=== PATIENT | male | born 1960 | race Caucasian/White ===

== ENCOUNTER 2018-11-29 13:26 | Emergency (ER) | payer OTHER ==
--- OUTSIDE RECORDS SUMMARY | 2018-11-29 13:29 | XMS REPORT ---
:1960 [facility] Address [address] [place] [address] Dr. Umana [address] [place] [id number] Care Team Providers Name Role Phone Unavailable Unavailable Unavailable Problems This patient has no known problems. Allergies, Adverse Reactions, Alerts This patient has no known allergies or adverse reactions. Medications This patient has no known medications.
--- NOTE | 2018-11-29 15:31 | EDPHYS ---
Physician Documentation [facility] Name: Rd Rodriguez Age: 58 yrs Sex: Male : 1960 Arrival Date: 11/29/2018 Time: 13:32 Bed 11 Private MD: ED Physician Arie Willis HPI: 11/29 14:45 This 58 yrs old Male presents to ER via Ambulatory with complaints of Back cp Pain. 14:45 The patient presents with pain that is chronic, with no known mechanism of injury, and cp tenderness. The symptoms are located in the right sciatic area. Onset: The symptoms/episode began/occurred gradually. The pain radiates to the right leg. Associated signs and symptoms: Pertinent negatives: abdominal pain, constipation, fever, hematuria, incontinence, urinary retention, weakness, saddle anesthesia. 14:45 The problem was sustained from a chronic condition, the patient has known disc disease, cp with intermittent flare ups. Modifying factors: the patient symptoms are aggravated by movement, walking. Historical: - Allergies: 13:34 No Known Allergies; bp - Home Meds: 13:34 Metoprolol Tartrate Oral [Active]; Seroquel Oral [Active]; Zoloft Oral [Active]; bp Amitriptyline Oral [Active]; gabapentin oral oral [Active]; - PMHx: 13:34 Hypertension; bp - Immunization history:: Adult Immunizations unknown. - Social history:: Smoking status: Patient uses tobacco products, smokes one pack cigarettes per day. - Ebola Screening: : No symptoms or risks identified at this time. ROS: 14:50 Constitutional: Negative for body aches, chills, fever, poor PO intake. cp 14:50 Eyes: Negative for injury, pain, redness, and discharge. cp 14:50 ENT: Negative for drainage from ear(s), ear pain, sore throat, difficulty swallowing, difficulty handling secretions. 14:50 Cardiovascular: Negative for chest pain, palpitations. 14:50 Respiratory: Negative for cough, shortness of breath, wheezing. 14:50 Abdomen/GI: Negative for abdominal pain, nausea, vomiting, and diarrhea, anorexia, bowel incontinence. 14:50 Back: Positive for pain at rest, pain with movement, of the right sciatic area. 14:50 : Negative for urinary symptoms, flank pain, difficulty urinating, bladder incontinence, testicular pain 14:50 MS/extremity: Positive for pain, paresthesias, of the right leg, Negative for injury or acute deformity, decreased range of motion. 14:50 Skin: Negative for rash. 14:50 Neuro: Negative for altered mental status, headache, numbness, weakness. 14:50 All other systems are negative. Exam: 15:00 Constitutional: The patient appears in no acute distress, alert, awake, non-toxic, well cp developed, well nourished, uncomfortable. 15:00 Head/Face: Normocephalic, atraumatic. cp 15:00 Eyes: Periorbital structures: appear normal, Conjunctiva: normal, no exudate, no injection, Sclera: no appreciated abnormality, Lids and lashes: appear normal, bilaterally. 15:00 ENT: External ear(s): are unremarkable, Nose: is normal, Mouth: Lips: moist, Oral mucosa: pink and intact, moist, Posterior pharynx: is normal, airway is patent, no erythema, no exudate. 15:00 Neck: ROM/movement: is normal, is supple, without pain, no range of motions limitations, no nuchal rigidity. 15:00 Chest/axilla: Inspection: normal. 15:00 Cardiovascular: Rhythm: regular. 15:00 Respiratory: the patient does not display signs of respiratory distress, Respirations: normal. 15:00 Abdomen/GI: Inspection: abdomen appears normal. 15:00 Back: pain, that is moderate, of the right sciatic area, ROM is painful, with flexion, vertebral tenderness, is not appreciated, Straight leg raises: of both lower extremities does not illicit pain. 15:00 Neuro: Motor: moves all fours, strength is normal, Sensation: no obvious gross deficits, Gait: is steady, Deep tendon reflexes are 2+ (normal) in the right patellar, right Achilles, left patellar and left Achilles. Vital Signs: 13:34 BP 142 / 84; Pulse 77; Resp 16; Temp 98; Pulse Ox 98% ; Weight 78.02 kg; Height 5 ft. 9 bp in. (175.26 cm); 15:33 Pain 6/10; ss 13:34 Body Mass Index 25.40 (78.02 kg, 175.26 cm) bp MDM: 14:34 Patient medically screened. cp 15:30 Data reviewed: vital signs, nurses notes, and as a result, I will discharge patient. cp 15:30 Counseling: I had a detailed discussion with the patient and/or guardian regarding: the cp historical points, exam findings, and any diagnostic results supporting the discharge/admit diagnosis, the need for outpatient follow up, a family practitioner, to return to the emergency department if symptoms worsen or persist or if there are any questions or concerns that arise at home. Response to treatment: the patient's symptoms have markedly improved after treatment, and as a result, I will discharge patient. Administered Medications: 14:47 Drug: TORadol 60 mg Route: IM; Site: left gluteus; ss 15:33 Follow up: Response: No adverse reaction; Pain is decreased ss Disposition: 11/29/18 15:31 Discharged to Home. Impression: Sciatica, right side. - Condition is Stable. - Discharge Instructions: Sciatica, Back Exercises. - Prescriptions for Cyclobenzaprine 10 mg Oral Tablet - take 1 tablet by ORAL route every 8 hours As needed no driving while taking medication; 20 tablet. Tramadol 50 mg Oral Tablet - take 1 tablet by ORAL route every 8 hours as needed; 12 tablet. Medrol (Fadi) 4 mg Oral Tablets, Dose Pack - take 1 tablet by ORAL route as directed - follow package instructions; 1 packet. - Medication Reconciliation Form, Thank You Letter, Antibiotic Education, Prescription Opioid Use form. - Follow up: Private Physician; When: 2 - 3 days; Reason: Recheck today's complaints. - Problem is new. - Symptoms have improved. Signatures: Elsa Bojorquez RN RN ss Alejandro Reyna PA PA cp Slava Bell RN RN bp Corrections: (The following items were deleted from the chart) 16:11 15:31 11/29/2018 15:31 Discharged to Home. Impression: Sciatica, right side. Condition ss is Stable. Forms are Medication Reconciliation Form, Thank You Letter, Antibiotic Education, Prescription Opioid Use. Follow up: Private Physician; When: 2 - 3 days; Reason: Recheck today's complaints. Problem is new. Symptoms have improved. cp
--- NOTE | 2018-11-29 15:31 | ER ---
Nurse's Notes [facility] Name: Rd Rodriguez Age: 58 yrs Sex: Male : 1960 Arrival Date: 11/29/2018 Time: 13:32 Bed 11 Private MD: Diagnosis: Sciatica, right side Presentation: 11/29 13:32 Presenting complaint: Patient states: R HIP/BACK PAIN, SCIATICA PATTERN. Transition of bp care: patient was not received from another setting of care. Onset of symptoms is unknown. Risk Assessment: Do you want to hurt yourself or someone else? Patient reports no desire to harm self or others. Initial Sepsis Screen: Does the patient meet any 2 criteria? No. Patient's initial sepsis screen is negative. Does the patient have a suspected source of infection? No. Patient's initial sepsis screen is negative. Care prior to arrival: None. 13:32 Method Of Arrival: Ambulatory bp 13:32 Acuity: JERICA 5 bp Triage Assessment: 13:34 General: Appears in no apparent distress. uncomfortable, Behavior is calm, cooperative, bp appropriate for age. Pain: Complains of pain in right leg. EENT: No deficits noted. Neuro: Level of Consciousness is awake, alert, obeys commands, Oriented to person, place, time, situation, Appropriate for age. Cardiovascular: No deficits noted. Respiratory: Airway is patent Respiratory effort is even, unlabored, Respiratory pattern is regular, symmetrical. GI: No signs and/or symptoms were reported involving the gastrointestinal system. : No signs and/or symptoms were reported regarding the genitourinary system. Derm: No deficits noted. Musculoskeletal: Circulation, motion, and sensation intact. Historical: - Allergies: 13:34 No Known Allergies; bp - Home Meds: 13:34 Metoprolol Tartrate Oral [Active]; Seroquel Oral [Active]; Zoloft Oral [Active]; bp Amitriptyline Oral [Active]; gabapentin oral oral [Active]; - PMHx: 13:34 Hypertension; bp - Immunization history:: Adult Immunizations unknown. - Social history:: Smoking status: Patient uses tobacco products, smokes one pack cigarettes per day. - Ebola Screening: : No symptoms or risks identified at this time. Screenin:30 Abuse screen: Denies threats or abuse. Denies injuries from another. Nutritional ss screening: No deficits noted. Tuberculosis screening: Never had TB. Fall Risk None identified. Assessment: 14:30 General: Appears in no apparent distress. comfortable, Behavior is calm, cooperative, ss Denies fever, feeling ill, fatigue, chills. Pain: Complains of pain in right ankle Pain currently is 8 out of 10 on a pain scale. Quality of pain is described as aching, Pain began years ago. Pt reports he has occasional flares ups over the past few years about every 5-6 months. Is continuous, Aggravated by increased activity, repositioning, weight bearing. Neuro: Level of Consciousness is awake, alert, obeys commands, Oriented to person, place, time, situation. Cardiovascular: Pulses are palpable in right posterior tibial artery and left posterior tibial artery. Respiratory: Airway is patent Respiratory effort is even, unlabored, Respiratory pattern is regular, symmetrical. GI: No signs and/or symptoms were reported involving the gastrointestinal system. EENT: Nares are clear Oral mucosa is moist. Throat is clear. Derm: Skin is intact, is healthy with good turgor, Skin is dry, Skin is pink, warm \T\ dry. normal. Musculoskeletal: Circulation, motion, and sensation intact. Range of motion: intact in all extremities, Swelling absent. 15:30 Reassessment: Patient appears in no apparent distress at this time. Patient and/or ss family updated on plan of care and expected duration. Pain level reassessed. Patient is alert, oriented x 3, equal unlabored respirations, skin warm/dry/pink. Pt is anxious to go home Patient states feeling better. Patient states symptoms have improved. Vital Signs: 13:34 BP 142 / 84; Pulse 77; Resp 16; Temp 98; Pulse Ox 98% ; Weight 78.02 kg; Height 5 ft. 9 bp in. (175.26 cm); 15:33 Pain 6/10; ss 13:34 Body Mass Index 25.40 (78.02 kg, 175.26 cm) bp ED Course: 13:32 Patient arrived in ED. mr 13:33 Triage completed. bp 13:36 Arm band placed on. bp 14:30 Alejandro Reyna PA is PHCP. cp 14:30 Arie Willis MD is Attending Physician. cp 14:30 Patient has correct armband on for positive identification. Bed in low position. Call ss light in reach. 14:30 No provider procedures requiring assistance completed. Patient did not have IV access ss during this emergency room visit. 14:36 Elsa Bojorquez, RN is Primary Nurse. ss Administered Medications: 14:47 Drug: TORadol 60 mg Route: IM; Site: left gluteus; ss 15:33 Follow up: Response: No adverse reaction; Pain is decreased ss Outcome: 15:31 Discharge ordered by MD. cp 16:10 Discharged to home ambulatory, with friend. ss 16:10 Condition: good 16:10 Discharge instructions given to patient, family, Instructed on discharge instructions, follow up and referral plans. medication usage, Demonstrated understanding of instructions, follow-up care, medications, Prescriptions given X 3. 16:11 Patient left the ED. Signatures: Blu Clarita mr Elsa Bojorquez, RN RN Alejandro Reyna, Slava Sams cp, RN RN bp
[2018-11-29] MEDS ORDERED: CODEINE 30MG/APAP 300MG TAB ONE (15:53)
[2018-11-29] MEDS ORDERED: KETOROLAC 30 MG/ML INJ ONE (17:25)
== END 2018-11-29 16:11 | disposition home or self-care (01) ==
LOC: ER 13:26 → EDBD 13:26 → ER 16:11
DX: M54.31 Sciatica, right side (principal); I10 Essential (primary) hypertension; F17.210 Nicotine dependence, cigarettes, uncomplicated
CPT/HCPCS: 96372; 99283

== ENCOUNTER 2022-11-10 08:56 | Emergency (ER) | payer OTHER ==
--- OUTSIDE RECORDS SUMMARY | 2022-11-10 09:02 | XMS REPORT | Continuity of Care Document ---
:1960 Author Organization [facility] t Address [address] [place] [address] [place] [id number] Care Team Providers Name Role Phone Sumanth NELSON, [facility] Primary Care Physician Derek Romano PTA Attending Clinician Unavailable Wilian Barnett MD Attending Clinician WILIAN BARNETT Attending Clinician Unavailable KARYN RAE Attending Clinician Unavailable Karyn Rae MD Attending Clinician Doctor Unassigned, Lee Vining Attending Clinician Unavailable Zulma Kelly PT Attending Clinician Unavailable Unknown, Attending Attending Clinician Unavailable Colten Manning Attending Clinician UNKNOWN, ATTENDING Attending Clinician Unavailable COLTEN ALTMAN Attending Clinician Unavailable Anju Rodriguez Attending Clinician SINGH GARCIA Attending Clinician Unavailable MEME MONTES Attending Clinician Unavailable RONEY MARTINEZ Attending Clinician Unavailable VERNA WALLACE Attending Clinician Unavailable Rasta Martins DO Attending Clinician RASTA MARTINS Attending Clinician Unavailable RASTA MARTINS Attending Clinician Unavailable ANJU RASMUSSEN Attending Clinician Unavailable Gama Robert Attending Clinician Unavailable Singh Garcia MD Attending Clinician ANJU RASMUSSEN Admitting Clinician Unavailable Payers Payer Name Policy Type Policy Number Effective Date Expiration Date Charles dominguez [employer] [id number] 2018 00:00:00 [employer] [id number] 2018 CARE 00:00:00 Problems Condition Condition Condition Status Onset Resolution Last Treating Co mments Source Name Details Category Date Date Treatment Clinician Date Acute Acute Disease Active Univers bilateral bilateral 309 ity of low back low back 00:00: [place] pain with pain with 00 Medi isabel sciatica sciatica Branch Abnormal Abnormal Disease Active Unive rs gait gait 3 ity of 00:00: [facility] Essential Essential Disease Active 2017-06 Uni vers hypertensi hypertensi 1-15 it y of on on 00:00: [place] 00 Medical Branch 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 00:00: [place] failure failure 00 Medical Branch Sciatica Sciatica Disease Active Unive rs of left of left 01-12 ity of side side 00:00: [place] 00 [facility] Sacro-johanne Sacro-johanne Disease Active U nivers c pain c pain 01-12 ity of 00:00: 00 [facility] Allergies, Adverse Reactions, Alerts Allergy Allergy Status Severity Reaction(s) Onset Inactive Treating Comm ents Source Name Type Date Date Clinician NO KNOWN Drug Active Univers ALLERGIE Class ity of S [facility] Social History Social Habit Start Date Stop Date Quantity Comments Source History of tobacco 1974-04-29 Cigarette Smoker University of use 00:00:00 [facility] History [facility] o f Alcohol Frequency [facility] Branch History [facility] o f Alcohol Std Drinks [facility] History [facility] o f Alcohol Binge [facility] al Branch Exposure to 2022-10-03 2022-10-13 Not sure University SARS-CoV-2 (event) 00:00:00 07:48:00 [facility] Alcohol intake 2022-08-04 2022-08-04 Ex-drinker University of 00:00:00 00:00:00 (finding) [facility] Tobacco use and 2022-04-25 2022-04-25 Smokeless Universit y of exposure 00:00:00 00:00:00 tobacco non-user [facility] [place] [facility] dical Branch Cigarettes smoked 2022-04-25 2022-04-25 Univers ity of current (pack per 00:00:00 00:00:00 [facility] ) - Reported Branch Cigarette 2022-04-25 2022-04-25 University of pack-years 00:00:00 00:00:00 [facility] Alcohol Comment 2019-01-27 2019-01-27 Quit 07/2018 Universi ty of 00:00:00 00:00:00 [facility] Sex [birth year] Universit y of 00:00:00 00:00:00 [facility] Smoking Status Start Date Stop Date Source Smokes tobacco daily 2022-04-25 00:00:00 Univers ity of [facility] Medications Ordered Filled Start Stop Current Ordering Indication Dosage Frequency Signature Comments Components Source Medication Medication Date Date Medication? Clinician (SIG) Name Name triamcinolo 2022- No [id number] 40mg Univers ne 08-04- ity of acetonide 19:45: 18:55 [place] (KENALOG) 00 :00 Medical injection Branch 40 mg ketorolac 2022- No [id number] 30mg Un leanna (TORADOL) 08-04-20 ity of injection 19:45: 18:53 [place] 30 mg 00 :00 Medical Branch ketorolac 2022- No [id number] 30mg 30 mg, Univers (TORADOL) -04 08-20 Intramuscu ity of injection 19:45: 18:53 [place], ONCE, [place] 30 mg 00 :00 1 dose, On Medical Mon Branch 08/04/22 at 1345, Routine triamcinolo 3- No [id number] 40mg 40 mg, Univers ne 08-04-20 Intramuscu ity of acetonide 19:45: 18:55 [place], ONCE, [place] (KENALOG) 00 :00 1 dose, On Medi isabel injection [facility] Branch 40 mg 08/04/22 at 1345, Routine ibuprofen Yes [id number] 600mg Take 1 Univers 600 mg 2-20 tablet by ity of tablet 00:00: mouth [place] 00 every 6 Medical (six) Branch hours as needed for Pain (scale 1-3) or Pain (scale 4-6). methylPREDN Yes [id number] Take by Univers ISolone 2-20 mouth ity of (MEDROL, 00:00: SEE-INSTRU [place] SHERLEY,) 4 mg 00 CTIONS. Medica l tablets follow Branch package directions ibuprofen 3-0 Yes [id number] 600mg Take 1 Univers 600 mg 2-20 tablet by ity of tablet 00:00: mouth [place] 00 every 6 Medical (six) Branch hours as needed for Pain (scale 1-3) or Pain (scale 4-6). methylPREDN 2023-0 Yes [id number] Take by Univers ISolone 2-20 mouth ity of (MEDROL, 00:00: SEE-INSTRU [place],) 4 mg 00 CTIONS. Medica l tablets follow Branch package directions ibuprofen 3-0 Yes [id number] 600mg Take 1 Univers 600 mg 2-20 tablet by ity of tablet 00:00: mouth [place] 00 every 6 Medical (six) Branch hours as needed for Pain (scale 1-3) or Pain (scale 4-6). methylPREDN 2023-0 Yes [id number] Take by Univers ISolone 2-20 mouth ity of (MEDROL, 00:00: SEE-INSTRU [place],) 4 mg 00 CTIONS. Medica l tablets follow Branch package directions ibuprofen 3-0 Yes [id number] 600mg Take 1 Univers 600 mg 2-20 tablet by ity of tablet 00:00: mouth [place] 00 every 6 Medical (six) Branch hours as needed for Pain (scale 1-3) or Pain (scale 4-6). methylPREDN 2023-0 Yes [id number] Take by Univers ISolone 2-20 mouth ity of (MEDROL, 00:00: SEE-INSTRU [place],) 4 mg 00 CTIONS. Medica l tablets follow Branch package directions ibuprofen 2023-0 Yes [id number] 600mg Take 1 Univers 600 mg 2-20 tablet by ity of tablet 00:00: mouth [place] 00 every 6 Medical (six) Branch hours as needed for Pain (scale 1-3) or Pain (scale 4-6). methylPREDN 2023-0 Yes [id number] Take by Univers ISolone 2-20 mouth ity of (MEDROL, 00:00: SEE-INSTRU [place],) 4 mg 00 CTIONS. Medica l tablets follow Branch package directions ibuprofen 2023-0 Yes [id number] 600mg Take 1 Univers 600 mg 2-20 tablet by ity of tablet 00:00: mouth [place] 00 every 6 Medical (six) Branch hours as needed for Pain (scale 1-3) or Pain (scale 4-6). methylPREDN 2022-0 Yes [id number] Take by Univers ISolone 2-20 mouth ity of (MEDROL, 00:00: SEE-INSTRU [place],) 4 mg 00 CTIONS. Medica l tablets follow Branch package directions ibuprofen 2022-0 Yes [id number] 600mg Take 1 Univers 600 mg 2-20 tablet by ity of tablet 00:00: mouth [place] 00 every 6 Medical (six) Branch hours as needed for Pain (scale 1-3) or Pain (scale 4-6). methylPREDN 2022-0 Yes [id number] Take by Univers ISolone 2-20 mouth ity of (MEDROL, 00:00: SEE-INSTRU [place],) 4 mg 00 CTIONS. Medica l tablets follow Branch package directions ketorolac 2022-0 2023- No [id number] 30mg Un leanna (TORADOL) -09 07-25 ity of injection 18:00: 17:04 [place] 30 mg 00 :00 Medical Branch ketorolac 2022-0 2023- No [id number] 30mg 30 mg, Univers (TORADOL) -09 07-25 Intramuscu ity of injection 18:00: 17:04 lar, ONCE, [place] 30 mg 00 :00 1 dose, On Medical Wed Branch 07/09/22 at 1200, Routine cyclobenzap 2022-0 Yes [id number] 5mg Take 1 Univers rine 5 mg 1-25 tablet by ity o f tablet 00:00: mouth at [place] [address] bedtime. Medical Branch methylPREDN 2022-0 Yes [id number] Take by Univers ISolone 1-25 mouth ity of (MEDROL, 00:00: SEE-INSTRU [place],) 4 mg 00 CTIONS. Medica l tablets follow Branch package directions cyclobenzap 2022-0 Yes [id number] 5mg Take 1 Univers rine 5 mg 1-25 tablet by ity o f tablet 00:00: mouth at [place] 00 bedtime. Medical Branch methylPREDN 3-0 Yes [id number] Take by Univers ISolone 1-25 mouth ity of (MEDROL, 00:00: SEE-INSTRU [place],) 4 mg 00 CTIONS. Medica l tablets follow Branch package directions cyclobenzap 2023-0 Yes [id number] 5mg Take 1 Univers rine 5 mg 1-25 tablet by ity o f tablet 00:00: mouth at [place] 00 bedtime. Medical Branch methylPREDN 2023-0 Yes [id number] Take by Univers ISolone 1-25 mouth ity of (MEDROL, 00:00: SEE-INSTRU [place],) 4 mg 00 CTIONS. Medica l tablets follow Branch package directions cyclobenzap 3-0 Yes [id number] 5mg Take 1 Univers rine 5 mg 1-25 tablet by ity o f tablet 00:00: mouth at [place] 00 bedtime. Medical Branch methylPREDN 3-0 Yes [id number] Take by Univers ISolone 1-25 mouth ity of (MEDROL, 00:00: SEE-INSTRU [place],) 4 mg 00 CTIONS. Medica l tablets follow Branch package directions cyclobenzap 2022-0 Yes [id number] 5mg Take 1 Univers rine 5 mg 1-25 tablet by ity o f tablet 00:00: mouth at [place] 00 bedtime. Medical Branch methylPREDN 3-0 Yes [id number] Take by Univers ISolone 1-25 mouth ity of (MEDROL, 00:00: SEE-INSTRU [place],) 4 mg 00 CTIONS. Medica l tablets follow Branch package directions cyclobenzap 2022-0 Yes [id number] 5mg Take 1 Univers rine 5 mg 1-25 tablet by ity o f tablet 00:00: mouth at [place] 00 bedtime. Medical Branch methylPREDN 2023-0 Yes [id number] Take by Univers ISolone 1-25 mouth ity of (MEDROL, 00:00: SEE-INSTRU [place],) 4 mg 00 CTIONS. Medica l tablets follow Branch package directions cyclobenzap 2023-0 Yes [id number] 5mg Take 1 Univers rine 5 mg 1-25 tablet by ity o f tablet 00:00: mouth at [place] 00 bedtime. Medical Branch methylPREDN 2023-0 Yes [id number] Take by Univers ISolone 1-25 mouth ity of (MEDROL, 00:00: SEE-INSTRU [place],) 4 mg 00 CTIONS. Medica l tablets follow Branch package directions cyclobenzap Yes [id number] 5mg Take 1 Univers rine 5 mg -25 tablet by ity o f tablet 00:00: mouth at [place] 00 bedtime. Medical Branch methylPREDN Yes [id number] Take by Univers ISolone -25 mouth ity of (MEDROL, 00:00: SEE-INSTRU [place],) 4 mg 00 CTIONS. Medica l tablets follow Branch package directions methylPREDN 2022- No [id number] Take by Univers ISolone -25 -25 mouth ity of (MEDROL, 00:00: 00:00 [place]INSTRU [place],) 4 mg 00 :00 CTIONS. Medica l tablets follow Branch package directions cyclobenzap 2022- No [id number] 5mg Take 1 Univers rine 5 mg -25 -25 tablet by ity of tablet 00:00: 00:00 mouth at [place] 00 :00 bedtime. Medical Branch GABAPENTIN No 300 MG CAPS 06-24 00:00: 00 ketorolac 2021-06- No [id number] 30mg Un leanna (TORADOL) 06-25 ity of injection 20:45: 20:13 [place] 30 mg 00 :00 Medical Branch dexamethaso 2021-06- No [id number] 10mg Univers ne 06-25 ity of (DECADRON) 20:45: 20:12 [place] injection 00 :00 Medical 10 mg Branch dexamethaso 2021-06- No [id number] 10mg 10 mg, Univers ne 06-25 Intramuscu ity of (DECADRON) 20:45: 20:12 lar, ONCE, [place] injection 00 :00 1 dose, On Medi isabel 10 mg Fri Branch 04/25/22 at 1445, Routine ketorolac 2021-06- No [id number] 30mg 30 mg, Univers (TORADOL) 06-25 Intramuscu ity of injection 20:45: 20:13 lar, ONCE, [place] 30 mg 00 :00 1 dose, On Medical Fri Branch 04/25/22 at 1445, Routine methylPREDN 2021-06 Yes [id number] Take by Univers ISolone 06-25 mouth ity of (MEDROL, 00:00: SEE-INSTRU [place],) 4 mg 00 CTIONS. Medica l tablets follow Branch package directions methylPREDN 2021-06- No [id number] Take by Univers ISolone 06-25 01-25 mouth ity of (MEDROL, 00:00: 00:00 [place]INSTRU [place],) 4 mg 00 :00 CTIONS. Medica l tablets follow Branch package directions meloxicam 2021-06- No [id number] 15mg Take 1 Univers (MOBIC) 15 06-25 tablet by ity of mg tablet 00:00: 05:59 mouth in [place] 00 :00 the Medical morning Branch for 10 days. methocarbam 2021-06- No [id number] 750mg Take 1 Univers oL 06-25 tablet by ity of (ROBAXIN-75 00:00: 05:59 mouth 4 [place] 0) 750 mg 00 :00 (four) Medical tablet times Branch daily for 10 days. hydrOXYzine 2021-06 Yes Univer s 25 mg 0-17 ity of tablet 00:00: [address] hydrOXYzine 2021-06 Yes Univer s 25 mg 0-17 ity of tablet 00:00: [address] hydrOXYzine 2021-06 Yes Univer s 25 mg 0-17 ity of tablet 00:00: [address] hydrOXYzine 2021-06 Yes Univer s 25 mg 0-17 ity of tablet 00:00: [address] hydrOXYzine 2021-06 Yes Univer s 25 mg 0-17 ity of tablet 00:00: [address] hydrOXYzine 2021-06 Yes Univer s 25 mg 0-17 ity of tablet 00:00: [address] hydrOXYzine 2021-06 Yes Univer s 25 mg 0-17 ity of tablet 00:00: [address] hydrOXYzine 2021-06 Yes Univer s 25 mg 0-17 ity of tablet 00:00: [address] hydrOXYzine 2021-06 Yes Univer s 25 mg 0-17 ity of tablet 00:00: [address] QUETIAPINE 2022-0 No FUMARATE 03-11 400 MG TABS 00:00: 00 GABAPENTIN 2021-0 No 100 MG CAPS 03-11 00:00: 00 losartan 50 2021-0 Yes Univer s mg tablet 03-07 ity of 00:00: [place] Medical Branch metoprolol 2021-0 Yes Univers tartrate 50 9-23 ity of mg tablet 00:00: [place] Medical Branch losartan 50 2021-0 Yes Univer s mg tablet 03-07 ity of 00:00: [place] Medical Branch metoprolol 2021-0 Yes Univers tartrate 50 9-23 ity of mg tablet 00:00: [place] Medical Branch losartan 50 2021-0 Yes Univer s mg tablet 23 ity of 00:00: [place] Medical Branch metoprolol 2021-0 Yes Univers tartrate 50 9-23 ity of mg tablet 00:00: [place] [address] Medical Branch losartan 50 2021-0 Yes Univer s mg tablet 03-07 ity of 00:00: [place] Medical Branch metoprolol 2021-0 Yes Univers tartrate 50 9-23 ity of mg tablet 00:00: [place] Medical Branch losartan 50 2021-0 Yes Univer s mg tablet 03-07 ity of 00:00: [place] [address] Medical Branch metoprolol 2021-0 Yes Univers tartrate 50 9-23 ity of mg tablet 00:00: [place] Medical Branch losartan 50 2021-0 Yes Univer s mg tablet 03-07 ity of 00:00: [place] [address] Medical Branch metoprolol 2021-0 Yes Univers tartrate 50 9-23 ity of mg tablet 00:00: [place] Medical Branch losartan 50 2-0 Yes Univer s mg tablet 23 ity of 00:00: [place] [address] Medical Branch metoprolol 2021-0 Yes Univers tartrate 50 9-23 ity of mg tablet 00:00: [place] 00 Medical Branch losartan 50 2-0 Yes Univer s mg tablet 9-23 ity of 00:00: [place] Medical Branch metoprolol 2021-0 Yes Univers tartrate 50 9-23 ity of mg tablet 00:00: [place] [address] Medical Branch losartan 50 2021-0 Yes Univer s mg tablet 9-23 ity of 00:00: [place] Medical Branch metoprolol 2021-0 Yes Univers tartrate 50 9-23 ity of mg tablet 00:00: [place] 00 Medical Branch ketorolac 2021-0 2021- No [id number] 30mg Un leanna (TORADOL) 12-13 ity of injection 17:00: 15:57 [place] 30 mg 00 :00 Medical Branch dexamethaso 2021-0 2022- No [id number] 10mg [facility] 12-13 ity of (DECADRON) 17:00: 15:56 [place] injection 00 :00 Medical 10 mg Branch dexamethaso 2021- No [id number] 10mg 10 mg, [facility] 12-13 Intramuscu ity of (DECADRON) 17:00: 15:56 lar, ONCE, [place] injection 00 :00 1 dose, On Medi isabel 10 mg 12/13/21 Branch at 1200, Routine ketorolac 2021- No [id number] 30mg 30 mg, [facility] (TORADOL) 12-13 Intramuscu ity of injection 17:00: 15:57 [place], ONCE, [place] 30 mg 00 :00 1 dose, On Medical 12/13/21 Branch at 1200, Routine methylPREDN 0 Yes [id number] Take by [facility] 12-13 mouth ity of (MEDROL, 00:00: SEE-INSTRU [place],) 4 mg 00 CTIONS. Medica l tablets follow Branch package directions methylPREDN 2021-0 Yes [id number] Take by [facility] 12-13 mouth ity of (MEDROL, 00:00: SEE-INSTRU [place],) 4 mg 00 CTIONS. Medica l tablets follow Branch package directions methylPREDN 2021-0 3- No [id number] Take by [facility] 12-13-25 mouth ity of (MEDROL, 00:00: 00:00 [place]INSTRU [place],) 4 mg 00 :00 CTIONS. Medica l tablets follow Branch package directions methocarbam 0 2- No [id number] 750mg Take 1 [facility] oL 12-1312 tablet by ity of (ROBAXIN-75 00:00: 04:59 [place] 4 [place] 0) 750 mg 00 :00 (four) Medical tablet times Branch daily for 10 days. meloxicam 2021-0 2021- No [id number] 15mg Take 1 Univers (MOBIC) 15 12-13 07-07 tablet by ity of mg tablet 00:00: 04:59 mouth [place] 00 :00 daily for Medical 5 days. Branch losartan 50 2021-0 No 1mg mg tablet 6-15 00:00: 00 metoprolol 2021-0 No 1mg tartrate 50 6-15 mg tablet 00:00: 00 &lt 2-0 No 6-15 00:00: 00 Dose 2021-0 No Unknown 6-15 00:00: 00 &lt 2021-0 No 6-15 00:00: 00 losartan 50 2021-0 No 1mg mg tablet 6-06 00:00: 00 Dose 2021-0 No Unknown 4-13 00:00: 00 Dose 2021-0 No Unknown 4-13 00:00: 00 Dose 2-0 No Unknown 4-13 00:00: 00 Dose 2-0 No Unknown 4-13 00:00: 00 Dose 2-0 No Unknown 4-13 00:00: 00 Dose 2-0 No Unknown 4-13 00:00: 00 Dose 2-0 No Unknown 4-13 00:00: 00 Dose 2-0 No Unknown 4-13 00:00: 00 Dose 2-0 No Unknown 4-13 00:00: 00 metoprolol 2021-0 No 1mg tartrate 50 4-07 mg tablet 00:00: 00 losartan 50 2021-0 No 1mg mg tablet 4-06 00:00: 00 metoprolol 2021-0 No 2mg tartrate 50 4-06 mg tablet 00:00: 00 METOPROLOL 2019- Yes [id number] TAKE ONE Univers SUCCINATE 1-30 TABLET BY ity o f XL 25 mg 24 00:00: MOUTH [place] hr tablet 00 DAILY Medical Branch METOPROLOL 2020- Yes [id number] TAKE ONE Univers SUCCINATE 1-30 TABLET BY ity o f XL 25 mg 24 00:00: MOUTH [place] hr tablet 00 DAILY Medical Branch METOPROLOL 2020 Yes [id number] TAKE ONE Univers SUCCINATE 1-30 TABLET BY ity o f XL 25 mg 24 00:00: MOUTH [place] hr tablet 00 DAILY Medical Branch METOPROLOL 2019-06 Yes [id number] TAKE ONE Univers SUCCINATE 1-30 TABLET BY ity o f XL 25 mg 24 00:00: MOUTH [place] hr tablet 00 DAILY Medical Branch METOPROLOL 2020- Yes [id number] TAKE ONE Univers SUCCINATE 1-30 TABLET BY ity o f XL 25 mg 24 00:00: MOUTH [place] hr tablet 00 DAILY Medical Branch METOPROLOL 2020 Yes [id number] TAKE ONE Univers SUCCINATE 1-30 TABLET BY ity o f XL 25 mg 24 00:00: MOUTH [place] hr tablet 00 DAILY Medical Branch METOPROLOL 2020 Yes [id number] TAKE ONE Univers SUCCINATE 1-30 TABLET BY ity o f XL 25 mg 24 00:00: MOUTH [place] hr tablet 00 DAILY Medical Branch METOPROLOL 2019-06 Yes [id number] TAKE ONE Univers SUCCINATE 1-30 TABLET BY ity o f XL 25 mg 24 00:00: MOUTH [place] hr tablet 00 DAILY Medical Branch METOPROLOL 2019-06 Yes [id number] TAKE ONE Univers SUCCINATE 1-30 TABLET BY ity o f XL 25 mg 24 00:00: MOUTH [place] hr tablet 00 DAILY Medical Branch METOPROLOL 2019-06 Yes [id number] TAKE ONE Univers SUCCINATE 1-30 TABLET BY ity o f XL 25 mg 24 00:00: MOUTH [place] hr tablet 00 DAILY Medical Branch METOPROLOL 2019-06 Yes [id number] TAKE ONE Univers SUCCINATE 1-30 TABLET BY ity o f XL 25 mg 24 00:00: MOUTH [place] hr tablet 00 DAILY Medical Branch METOPROLOL 2019-06 Yes [id number] TAKE ONE Univers SUCCINATE 1-30 TABLET BY ity o f XL 25 mg 24 00:00: MOUTH [place] hr tablet 00 DAILY Medical Branch albuterol Yes 2{puff} Inhale 2 U nivers (VENTOLIN 1-16 Puffs ity of HFA) 90 15:43: every 4 [place] mcg/actuati 22 (four) Medica l on inhaler hours as Branc h needed for Wheezing or Shortness of Breath. QUEtiapine 2020-0 Yes 300mg Take 300 Un leanna 300 mg 1-16 mg by ity of tablet 15:43: mouth at [place] 22 bedtime. Medical 1-1/2 tab Branch at bedtime gabapentin 2019-0 Yes 300mg Take 300 Un leanna ER 300 mg 1-16 mg by ity of tablet, 15:43: mouth 3 [place] extended 22 (three) Medical release 24 times Branch hr daily. albuterol 2020-0 Yes 2{puff} Inhale 2 U nivers (VENTOLIN 1-16 Puffs ity of HFA) 90 15:43: every 4 [place] mcg/actuati 22 (four) Medica l on inhaler hours as Branc h needed for Wheezing or Shortness of Breath. QUEtiapine 2020-0 Yes 300mg Take 300 Un leanna 300 mg 1-16 mg by ity of tablet 15:43: mouth at [place] 22 bedtime. Medical 1-1/2 tab Branch at bedtime gabapentin 2020-0 Yes 300mg Take 300 Un leanna ER 300 mg 1-16 mg by ity of tablet, 15:43: mouth 3 [place] extended 22 (three) Medical release 24 times Branch hr daily. albuterol 2020-0 Yes 2{puff} Inhale 2 U nivers (VENTOLIN 1-16 Puffs ity of HFA) 90 15:43: every 4 [place] mcg/actuati 22 (four) Medica l on inhaler hours as Branc h needed for Wheezing or Shortness of Breath. QUEtiapine 2020-0 Yes 300mg Take 300 [place] 300 mg 1-16 mg by ity of tablet 15:43: mouth at [place] 22 bedtime. Medical 1-1/2 tab Branch at bedtime gabapentin 2020-0 Yes 300mg Take 300 Un leanna ER 300 mg 1-16 mg by ity of tablet, 15:43: mouth 3 [place] extended 22 (three) Medical release 24 times Branch hr daily. albuterol 2020-0 Yes 2{puff} Inhale 2 U nivers (VENTOLIN 1-16 Puffs ity of HFA) 90 15:43: every 4 [place] mcg/actuati 22 (four) Medica l on inhaler hours as Branc h needed for Wheezing or Shortness of Breath. QUEtiapine 2020-0 Yes 300mg Take 300 [place] 300 mg 1-16 mg by ity of tablet 15:43: mouth at [place] 22 bedtime. Medical 1-1/2 tab Branch at bedtime gabapentin 2020-0 Yes 300mg Take 300 Un leanna ER 300 mg 1-16 mg by ity of tablet, 15:43: mouth 3 [place] extended 22 (three) Medical release 24 times Branch hr daily. albuterol 2020-0 Yes 2{puff} Inhale 2 U nivers (VENTOLIN 1-16 Puffs ity of HFA) 90 15:43: every 4 [place] mcg/actuati 22 (four) Medica l on inhaler hours as Branc h needed for Wheezing or Shortness of Breath. QUEtiapine 2020-0 Yes 300mg Take 300 Un [place]anna 300 mg 1-16 mg by ity of tablet 15:43: mouth at [place] 22 bedtime. Medical 1-1/2 tab Branch at bedtime gabapentin 2020-0 Yes 300mg Take 300 Un leanna ER 300 mg 1-16 mg by ity of tablet, 15:43: mouth 3 [place] extended 22 (three) Medical release 24 times Branch hr daily. albuterol 2020-0 Yes 2{puff} Inhale 2 U nivers (VENTOLIN 1-16 Puffs ity of HFA) 90 15:43: every 4 [place] mcg/actuati 22 (four) Medica l on inhaler hours as Branc h needed for Wheezing or Shortness of Breath. QUEtiapine 2020-0 Yes 300mg Take 300 Un [place]anna 300 mg 1-16 mg by ity of tablet 15:43: mouth at [place] 22 bedtime. Medical 1-1/2 tab Branch at bedtime gabapentin 2020-0 Yes 300mg Take 300 Un leanna ER 300 mg 1-16 mg by ity of tablet, 15:43: mouth 3 [place] extended 22 (three) Medical release 24 times Branch hr daily. albuterol 2020-0 Yes 2{puff} Inhale 2 U nivers (VENTOLIN 1-16 Puffs ity of HFA) 90 15:43: every 4 [place] mcg/actuati 22 (four) Medica l on inhaler hours as Branc h needed for Wheezing or Shortness of Breath. QUEtiapine 2020-0 Yes 300mg Take 300 Un leanna 300 mg 1-16 mg by ity of tablet 15:43: mouth at [place] 22 bedtime. Medical 1-1/2 tab Branch at bedtime gabapentin 2020-0 Yes 300mg Take 300 Un leanna ER 300 mg 1-16 mg by ity of tablet, 15:43: mouth 3 [place] extended 22 (three) Medical release 24 times Branch hr daily. albuterol 2020-0 Yes 2{puff} Inhale 2 U nivers (VENTOLIN 1-16 Puffs ity of HFA) 90 15:43: every 4 [place] mcg/actuati 22 (four) Medica l on inhaler hours as Branc h needed for Wheezing or Shortness of Breath. QUEtiapine 2020-0 Yes 300mg Take 300 [place] 300 mg 1-16 mg by ity of tablet 15:43: mouth at [place] 22 bedtime. Medical 1-1/2 tab Branch at bedtime gabapentin 2020-0 Yes 300mg Take 300 Un leanna ER 300 mg 1-16 mg by ity of tablet, 15:43: mouth 3 [place] extended 22 (three) Medical release 24 times Branch hr daily. albuterol 2020-0 Yes 2{puff} Inhale 2 U nivers (VENTOLIN 1-16 Puffs ity of HFA) 90 15:43: every 4 [place] mcg/actuati 22 (four) Medica l on inhaler hours as Branc h needed for Wheezing or Shortness of Breath. QUEtiapine 2020-0 Yes 300mg Take 300 [place] 300 mg 1-16 mg by ity of tablet 15:43: mouth at [place] 22 bedtime. Medical 1-1/2 tab Branch at bedtime gabapentin 2020-0 Yes 300mg Take 300 [place] ER 300 mg 1-16 mg by ity of tablet, 15:43: mouth 3 [place] extended 22 (three) Medical release 24 times Branch hr daily. albuterol 2020-0 Yes 2{puff} Inhale 2 U nivers (VENTOLIN 1-16 Puffs ity of HFA) 90 15:43: every 4 [place] mcg/actuati 22 (four) Medica l on inhaler hours as Branc h needed for Wheezing or Shortness of Breath. QUEtiapine 2020-0 Yes 300mg Take 300 Un leanna 300 mg 1-16 mg by ity of tablet 15:43: mouth at [place] 22 bedtime. Medical 1-1/2 tab Branch at bedtime gabapentin 2020-0 Yes 300mg Take 300 Un leanna ER 300 mg 1-16 mg by ity of tablet, 15:43: mouth 3 [place] extended 22 (three) Medical release 24 times Branch hr daily. albuterol 2020-0 Yes 2{puff} Inhale 2 U nivers (VENTOLIN 1-16 Puffs ity of HFA) 90 15:43: every 4 [place] mcg/actuati 22 (four) Medica l on inhaler hours as Branc h needed for Wheezing or Shortness of Breath. QUEtiapine 2020-0 Yes 300mg Take 300 Un leanna 300 mg 1-16 mg by ity of tablet 15:43: mouth at [place] 22 bedtime. Medical 1-1/2 tab Branch at bedtime gabapentin 2020-0 Yes 300mg Take 300 Un leanna ER 300 mg 1-16 mg by ity of tablet, 15:43: mouth 3 [place] extended 22 (three) Medical release 24 times Branch hr daily. albuterol 2020-0 Yes 2{puff} Inhale 2 U nivers (VENTOLIN 1-16 Puffs ity of HFA) 90 15:43: every 4 [place] mcg/actuati 22 (four) Medica l on inhaler hours as Branc h needed for Wheezing or Shortness of Breath. QUEtiapine 2020-0 Yes 300mg Take 300 Un leanna 300 mg 1-16 mg by ity of tablet 15:43: mouth at [place] 22 bedtime. Medical 1-/2 tab Branch at bedtime gabapentin 2020-0 Yes 300mg Take 300 Un leanna ER 300 mg 1-16 mg by ity of tablet, 15:43: mouth 3 [place] extended 22 (three) Medical release 24 times Branch hr daily. albuterol 2020-0 Yes 2{puff} Inhale 2 U nivers (VENTOLIN 1-16 Puffs ity of HFA) 90 15:43: every 4 [place] mcg/actuati 22 (four) Medica l on inhaler hours as Branc h needed for Wheezing or Shortness of Breath. QUEtiapine 2020-0 Yes 300mg Take 300 Un leanna 300 mg 1-16 mg by ity of tablet 15:43: mouth at [place] 22 bedtime. Medical 1-1/2 tab Branch at bedtime gabapentin 2020-0 Yes 300mg Take 300 Un leanna ER 300 mg 1-16 mg by ity of tablet, 15:43: mouth 3 [place] extended 22 (three) Medical release 24 times Branch hr daily. albuterol 2020-0 Yes 2{puff} Inhale 2 U nivers (VENTOLIN 1-16 Puffs ity of HFA) 90 15:43: every 4 [place] mcg/actuati 22 (four) Medica l on inhaler hours as Branc h needed for Wheezing or Shortness of Breath. QUEtiapine 2020-0 Yes 300mg Take 300 Un leanna 300 mg 1-16 mg by ity of tablet 15:43: mouth at [place] 22 bedtime. Medical 1-1/2 tab Branch at bedtime gabapentin 2020-0 Yes 300mg Take 300 Un leanna ER 300 mg 1-16 mg by ity of tablet, 15:43: mouth 3 [place] extended 22 (three) Medical release 24 times Branch hr daily. albuterol 2020-0 Yes 2{puff} Inhale 2 U nivers (VENTOLIN 1-16 Puffs ity of HFA) 90 09:43: every 4 [place] mcg/actuati 22 (four) Medica l on inhaler hours as Branc h needed for Wheezing or Shortness of Breath. QUEtiapine 2020-0 Yes 300mg Take 300 Un leanna 300 mg 1-16 mg by ity of tablet 09:43: mouth at [place] 22 bedtime. Medical 1-1/2 tab Branch at bedtime gabapentin 2020-0 Yes 300mg Take 300 Un leanna ER 300 mg 1-16 mg by ity of tablet, 09:43: mouth 3 [place] extended 22 (three) Medical release 24 times Branch hr daily. albuterol 2020-0 Yes 2{puff} Inhale 2 U nivers (VENTOLIN 1-16 Puffs ity of HFA) 90 09:43: every 4 [place] mcg/actuati 22 (four) Medica l on inhaler hours as Branc h needed for Wheezing or Shortness of Breath. QUEtiapine 2020-0 Yes 300mg Take 300 Un leanna 300 mg 1-16 mg by ity of tablet 09:43: mouth at [place] [address] bedtime. Medical 1-1/2 tab Branch at bedtime gabapentin 2020-0 Yes 300mg Take 300 Un leanna ER 300 mg 1-16 mg by ity of tablet, 09:43: mouth 3 [place] extended 22 (three) Medical release 24 times Branch hr daily. albuterol 2020-0 Yes 2{puff} Inhale 2 U nivers (VENTOLIN 1-16 Puffs ity of HFA) 90 09:43: every 4 [place] mcg/actuati 22 (four) Medica l on inhaler hours as Branc h needed for Wheezing or Shortness of Breath. QUEtiapine 2020-0 Yes 300mg Take 300 Un leanna 300 mg 1-16 mg by ity of tablet 09:43: mouth at [place] 22 bedtime. Medical 1-1/2 tab Branch at bedtime gabapentin 2020-0 Yes 300mg Take 300 Un leanna ER 300 mg 1-16 mg by ity of tablet, 09:43: mouth 3 [place] extended 22 (three) Medical release 24 times Branch hr daily. albuterol 2020-0 Yes 2{puff} Inhale 2 U nivers (VENTOLIN 1-16 Puffs ity of HFA) 90 09:43: every 4 [place] mcg/actuati 22 (four) Medica l on inhaler hours as Branc h needed for Wheezing or Shortness of Breath. QUEtiapine 2020-0 Yes 300mg Take 300 Un [facility]anna 300 mg 1-16 mg by ity of tablet 09:43: mouth at [place] 22 bedtime. Medical 1-1/2 tab Branch at bedtime gabapentin 2020-0 Yes 300mg Take 300 Un [facility] ER 300 mg 1-16 mg by ity of tablet, 09:43: mouth 3 [place] extended 22 (three) Medical release 24 times Branch hr daily. albuterol 2020-0 Yes 2{puff} Inhale 2 U nivers (VENTOLIN 1-16 Puffs ity of HFA) 90 09:43: every 4 [place] mcg/actuati 22 (four) Medica l on inhaler hours as Branc h needed for Wheezing or Shortness of Breath. QUEtiapine 2020-0 Yes 300mg Take 300 Un leanna 300 mg 1-16 mg by ity of tablet 09:43: mouth at [place] 22 bedtime. Medical 1-1/2 tab Branch at bedtime gabapentin 2020-0 Yes 300mg Take 300 Un le[facility] ER 300 mg 1-16 mg by ity of tablet, 09:43: mouth 3 [place] extended 22 (three) Medical release 24 times Branch hr daily. albuterol 2020-0 Yes 2{puff} Inhale 2 U nivers (VENTOLIN 1-16 Puffs ity of HFA) 90 09:43: every 4 [place] mcg/actuati 22 (four) Medica l on inhaler hours as Branc h needed for Wheezing or Shortness of Breath. QUEtiapine 2020-0 Yes 300mg Take 300 Un leanna 300 mg 1-16 mg by ity of tablet 09:43: mouth at [place] 22 bedtime. Medical 1-1/2 tab Branch at bedtime gabapentin 2020-0 Yes 300mg Take 300 Un [facility] ER 300 mg 1-16 mg by ity of tablet, 09:43: mouth 3 [place] extended 22 (three) Medical release 24 times Branch hr daily. albuterol 2020-0 Yes 2{puff} Inhale 2 U nivers (VENTOLIN 1-16 Puffs ity of HFA) 90 09:43: every 4 [place] mcg/actuati 22 (four) Medica l on inhaler hours as Branc h needed for Wheezing or Shortness of Breath. QUEtiapine 2020-0 Yes 300mg Take 300 Un [facility] 300 mg 1-16 mg by ity of tablet 09:43: mouth at [place] 22 bedtime. Medical 1-1/2 tab Branch at bedtime gabapentin 2020-0 Yes 300mg Take 300 Un leanna ER 300 mg 1-16 mg by ity of tablet, 09:43: mouth 3 [place] extended 22 (three) Medical release 24 times Branch hr daily. albuterol 2020-0 Yes 2{puff} Inhale 2 U nivers (VENTOLIN 1-16 Puffs ity of HFA) 90 09:43: every 4 [place] mcg/actuati 22 (four) Medica l on inhaler hours as Branc h needed for Wheezing or Shortness of Breath. QUEtiapine 2020-0 Yes 300mg Take 300 Un leanna 300 mg 1-16 mg by ity of tablet 09:43: mouth at [place] [address] bedtime. Medical 1-1/2 tab Branch at bedtime gabapentin 2020-0 Yes 300mg Take 300 Un leanna ER 300 mg 1-16 mg by ity of tablet, 09:43: mouth 3 [facility] 22 (three) Medical release 24 times Branch hr daily. albuterol 2020-0 Yes 2{puff} Inhale 2 U nivers (VENTOLIN 1-16 Puffs ity of HFA) 90 09:43: every 4 [place] mcg/actuati 22 (four) Medica l on inhaler hours as Branc h needed for Wheezing or Shortness of Breath. QUEtiapine 2020-0 Yes 300mg Take 300 Un leanna 300 mg 1-16 mg by ity of tablet 09:43: mouth at [place] [address] bedtime. Medical 1-1/2 tab Branch at bedtime gabapentin 2020-0 Yes 300mg Take 300 Un leanna ER 300 mg 1-16 mg by ity of tablet, 09:43: mouth 3 [place] extended 22 (three) Medical release 24 times Branch hr daily. albuterol 2020-0 Yes 2{puff} Inhale 2 U nivers (VENTOLIN 1-16 Puffs ity of HFA) 90 09:43: every 4 [place] mcg/actuati 22 (four) Medica l on inhaler hours as Branc h needed for Wheezing or Shortness of Breath. QUEtiapine 2020-0 Yes 300mg Take 300 Un leanna 300 mg 1-16 mg by ity of tablet 09:43: mouth at [place] 22 bedtime. Medical 1-1/2 tab Branch at bedtime gabapentin 2020-0 Yes 300mg Take 300 Un leanna ER 300 mg 1-16 mg by ity of tablet, 09:43: mouth 3 [place] extended 22 (three) Medical release 24 times Branch hr daily. albuterol 2020-0 Yes 2{puff} Inhale 2 U nivers (VENTOLIN 1-16 Puffs ity of HFA) 90 09:43: every 4 [place] mcg/actuati 22 (four) Medica l on inhaler hours as Branc h needed for Wheezing or Shortness of Breath. QUEtiapine 2020-0 Yes 300mg Take 300 Un leanna 300 mg 1-16 mg by ity of tablet 09:43: mouth at [place] 22 bedtime. Medical 1-1/2 tab Branch at bedtime gabapentin 2020-0 Yes 300mg Take 300 Un leanna ER 300 mg 1-16 mg by ity of tablet, 09:43: mouth 3 [place] extended 22 (three) Medical release 24 times Branch hr daily. amLODIPine 2020-0 Yes [id number] 5mg Take 1 U nivers 5 mg tablet 1-16 tablet by ity of 00:00: mouth [place] 00 daily. Medical Branch metoprolol 2020-0 Yes [id number] 25mg Take 1 U nivers succinate 1-16 tablet by ity o f XL 25 mg 24 00:00: mouth [place] hr tablet 00 every 24 Medica l (twenty-fo Branch ur) hours. amLODIPine 2020-0 Yes [id number] 5mg Take 1 U nivers 5 mg tablet 1-16 tablet by ity of 00:00: mouth [place] 00 daily. Medical Branch metoprolol 2020-0 Yes [id number] 25mg Take 1 U nivers succinate 1-16 tablet by ity o f XL 25 mg 24 00:00: mouth [place] hr tablet 00 every 24 Medica l (twenty-fo Branch ur) hours. amLODIPine 2020-0 Yes [id number] 5mg Take 1 U nivers 5 mg tablet 1-16 tablet by ity of 00:00: mouth [place] 00 daily. Medical Branch metoprolol 2020-0 Yes [id number] 25mg Take 1 U nivers succinate 1-16 tablet by ity o f XL 25 mg 24 00:00: mouth [place] hr tablet 00 every 24 Medica l (twenty-fo Branch ur) hours. amLODIPine 2020-0 Yes [id number] 5mg Take 1 U nivers 5 mg tablet 1-16 tablet by ity of 00:00: mouth [place] 00 daily. Medical Branch metoprolol 2020-0 Yes [id number] 25mg Take 1 U nivers succinate 1-16 tablet by ity o f XL 25 mg 24 00:00: mouth [place] hr tablet 00 every 24 Medica l (twenty-fo Branch ur) hours. amLODIPine 2020-0 Yes [id number] 5mg Take 1 U nivers 5 mg tablet 1-16 tablet by ity of 00:00: mouth [place] 00 daily. Medical Branch metoprolol 2020-0 Yes [id number] 25mg Take 1 U nivers succinate 1-16 tablet by ity o f XL 25 mg 24 00:00: mouth [place] hr tablet 00 every 24 Medica l (twenty-fo Branch ur) hours. amLODIPine 2020-0 Yes [id number] 5mg Take 1 U nivers 5 mg tablet 1-16 tablet by ity of 00:00: mouth [place] 00 daily. Medical Branch metoprolol 2020-0 Yes [id number] 25mg Take 1 U nivers succinate 1-16 tablet by ity o f XL 25 mg 24 00:00: mouth [place] hr tablet 00 every 24 Medica l (twenty-fo Branch ur) hours. amLODIPine 2020-0 Yes [id number] 5mg Take 1 U nivers 5 mg tablet 1-16 tablet by ity of 00:00: mouth [place] 00 daily. Medical Branch metoprolol 2020-0 Yes [id number] 25mg Take 1 U nivers succinate 1-16 tablet by ity o f XL 25 mg 24 00:00: mouth [place] hr tablet 00 every 24 Medica l (twenty-fo Branch ur) hours. amLODIPine 2020-0 Yes [id number] 5mg Take 1 U nivers 5 mg tablet 1-16 tablet by ity of 00:00: mouth [place] 00 daily. Medical Branch metoprolol 2020-0 Yes [id number] 25mg Take 1 U nivers succinate 1-16 tablet by ity o f XL 25 mg 24 00:00: mouth [place] hr tablet 00 every 24 Medica l (twenty-fo Branch ur) hours. amLODIPine 2020-0 Yes [id number] 5mg Take 1 U nivers 5 mg tablet 1-16 tablet by ity of 00:00: mouth [place] 00 daily. Medical Branch metoprolol 2020-0 Yes [id number] 25mg Take 1 U nivers succinate 1-16 tablet by ity o f XL 25 mg 24 00:00: mouth [place] hr tablet 00 every 24 Medica l (twenty-fo Branch ur) hours. amLODIPine 2020-0 Yes [id number] 5mg Take 1 U nivers 5 mg tablet 1-16 tablet by ity of 00:00: mouth [place] 00 daily. Medical Branch metoprolol 2020-0 Yes [id number] 25mg Take 1 U nivers succinate 1-16 tablet by ity o f XL 25 mg 24 00:00: mouth [place] hr tablet 00 every 24 Medica l (twenty-fo Branch ur) hours. amLODIPine 2020-0 Yes [id number] 5mg Take 1 U nivers 5 mg tablet 1-16 tablet by ity of 00:00: mouth [place] 00 daily. Medical Branch metoprolol 2020-0 Yes [id number] 25mg Take 1 U nivers succinate 1-16 tablet by ity o f XL 25 mg 24 00:00: mouth [place] hr tablet 00 every 24 Medica l (twenty-fo Branch ur) hours. amLODIPine 2020-0 Yes [id number] 5mg Take 1 U nivers 5 mg tablet 1-16 tablet by ity of 00:00: mouth [place] 00 daily. Medical Branch metoprolol 2020-0 Yes [id number] 25mg Take 1 U nivers succinate 1-16 tablet by ity o f XL 25 mg 24 00:00: mouth [place] hr tablet 00 every 24 Medica l (twenty-fo Branch ur) hours. amLODIPine 2020-0 Yes [id number] 5mg Take 1 U nivers 5 mg tablet 1-16 tablet by ity of 00:00: mouth [place] 00 daily. Medical Branch metoprolol 2020-0 Yes [id number] 25mg Take 1 U nivers succinate 1-16 tablet by ity o f XL 25 mg 24 00:00: mouth [place] hr tablet 00 every 24 Medica l (twenty-fo Branch ur) hours. amLODIPine 2020-0 Yes [id number] 5mg Take 1 U nivers 5 mg tablet 1-16 tablet by ity of 00:00: mouth [place] 00 daily. Medical Branch amLODIPine 2020-0 Yes [id number] 5mg Take 1 U nivers 5 mg tablet 1-16 tablet by ity of 00:00: mouth [place] 00 daily. Medical Branch amLODIPine 2020-0 Yes [id number] 5mg Take 1 U nivers 5 mg tablet 1-16 tablet by ity of 00:00: mouth [place] 00 daily. Medical Branch amLODIPine 2020-0 Yes [id number] 5mg Take 1 U nivers 5 mg tablet 1-16 tablet by ity of 00:00: mouth [place] 00 daily. Medical Branch amLODIPine 2020-0 Yes [id number] 5mg Take 1 U nivers 5 mg tablet 1-16 tablet by ity of 00:00: mouth [place] 00 daily. Medical Branch amLODIPine 2020-0 Yes [id number] 5mg Take 1 U nivers 5 mg tablet 1-16 tablet by ity of 00:00: mouth [place] 00 daily. Medical Branch amLODIPine 2020-0 Yes [id number] 5mg Take 1 U nivers 5 mg tablet 1-16 tablet by ity of 00:00: mouth [place] 00 daily. Medical Branch amLODIPine 2020-0 Yes [id number] 5mg Take 1 U nivers 5 mg tablet 1-16 tablet by ity of 00:00: mouth [place] 00 daily. Medical Branch amLODIPine 2020-0 Yes [id number] 5mg Take 1 U nivers 5 mg tablet 1-16 tablet by ity of 00:00: mouth [place] 00 daily. Medical Branch amLODIPine 2020-0 Yes [id number] 5mg Take 1 U nivers 5 mg tablet 1-16 tablet by ity of 00:00: mouth [place] 00 daily. Medical Branch amLODIPine 2020-0 Yes [id number] 5mg Take 1 U nivers 5 mg tablet 1-16 tablet by ity of 00:00: mouth [place] 00 daily. Medical Branch amLODIPine 2020-0 Yes [id number] 5mg Take 1 U nivers 5 mg tablet 1-16 tablet by ity of 00:00: mouth [place] 00 daily. Medical Branch metoprolol 2020-0 2020- No [id number] 25mg Take 1 [facility] succinate 1-16 11-30 tablet by ity of XL 25 mg 24 00:00: 00:00 [place] hr tablet 00 :00 every 24 Medica l (twenty-fo Branch ur) hours. gabapentin 2019-0 Yes 300mg Take 300 Un [place] ER 300 mg 8-21 mg by ity of tablet, 18:48: mouth 3 [place] extended 26 (three) Medical release 24 times Branch hr daily. albuterol 2019-0 Yes 2{puff} Inhale 2 U nivers (VENTOLIN 8-21 Puffs ity of HFA) 90 18:48: every 4 [place] mcg/actuati 26 (four) Medica l on inhaler hours as Branc h needed for Wheezing or Shortness of Breath. QUEtiapine 2019-0 Yes 300mg Take 300 Un leanna 300 mg 8-21 mg by ity of tablet 18:48: mouth at [place] [address] bedtime. Medical 1-/ tab Branch at bedtime gabapentin 2019-0 Yes 300mg Take 300 Un leanna ER 300 mg 8-21 mg by ity of tablet, 18:48: mouth 3 [place] extended 26 (three) Medical release 24 times Branch hr daily. albuterol 2019-0 Yes 2{puff} Inhale 2 U nivers (VENTOLIN 8-21 Puffs ity of HFA) 90 18:48: every 4 [place] mcg/actuati 26 (four) Medica l on inhaler hours as Branc h needed for Wheezing or Shortness of Breath. QUEtiapine 2019-0 Yes 300mg Take 300 Un leanna 300 mg 8-21 mg by ity of tablet 18:48: mouth at [place] [address] bedtime. Medical 1-/2 tab Branch at bedtime gabapentin 2019-0 Yes 300mg Take 300 Un leanna ER 300 mg 8-21 mg by ity of tablet, 18:48: mouth 3 [place] extended 26 (three) Medical release 24 times Branch hr daily. albuterol 2019-0 Yes 2{puff} Inhale 2 U nivers (VENTOLIN 8-21 Puffs ity of HFA) 90 18:48: every 4 [place] mcg/actuati 26 (four) Medica l on inhaler hours as Branc h needed for Wheezing or Shortness of Breath. QUEtiapine 2019-0 Yes 300mg Take 300 Un leanna 300 mg 8-21 mg by ity of tablet 18:48: mouth at [place] [address] bedtime. Medical 1-2 tab Branch at bedtime gabapentin 2019-0 Yes 300mg Take 300 Un [place] ER 300 mg 8-21 mg by ity of tablet, 18:48: mouth 3 [place] extended 26 (three) Medical release 24 times Branch hr daily. albuterol 2019-0 Yes 2{puff} Inhale 2 U nivers (VENTOLIN 8-21 Puffs ity of HFA) 90 18:48: every 4 [place] mcg/actuati 26 (four) Medica l on inhaler hours as Branc h needed for Wheezing or Shortness of Breath. QUEtiapine 2019-0 Yes 300mg Take 300 Un leanna 300 mg 8-21 mg by ity of tablet 18:48: mouth at [place] [address] bedtime. Medical 1-06/16 tab Branch at bedtime gabapentin 2019-0 Yes 300mg Take 300 Un le[place] ER 300 mg 8-21 mg by ity of tablet, 18:48: mouth 3 [place] extended 26 (three) Medical release 24 times Branch hr daily. albuterol 2019-0 Yes 2{puff} Inhale 2 U nivers (VENTOLIN 8-21 Puffs ity of HFA) 90 18:48: every 4 [place] mcg/actuati 26 (four) Medica l on inhaler hours as Branc h needed for Wheezing or Shortness of Breath. QUEtiapine 2019-0 Yes 300mg Take 300 Un leanna 300 mg 8-21 mg by ity of tablet 18:48: mouth at [place] [address] bedtime. Medical 1-2 tab Branch at bedtime gabapentin 2019-0 Yes 300mg Take 300 Un [place] ER 300 mg 8-21 mg by ity of tablet, 18:48: mouth 3 [place] extended 26 (three) Medical release 24 times Branch hr daily. albuterol 2019-0 Yes 2{puff} Inhale 2 U nivers (VENTOLIN 8-21 Puffs ity of HFA) 90 18:48: every 4 [place] mcg/actuati 26 (four) Medica l on inhaler hours as Branc h needed for Wheezing or Shortness of Breath. QUEtiapine 2019-0 Yes 300mg Take 300 Un leanna 300 mg 8-21 mg by ity of tablet 18:48: mouth at [place] [address] bedtime. Medical 1-/2 tab Branch at bedtime gabapentin 2019-0 Yes 300mg Take 300 Un [place] ER 300 mg 8-21 mg by ity of tablet, 18:48: mouth 3 [place] extended 26 (three) Medical release 24 times Branch hr daily. albuterol 2019-0 Yes 2{puff} Inhale 2 U nivers (VENTOLIN 8-21 Puffs ity of HFA) 90 18:48: every 4 [place] mcg/actuati 26 (four) Medica l on inhaler hours as Branc h needed for Wheezing or Shortness of Breath. QUEtiapine 2019-0 Yes 300mg Take 300 Un leanna 300 mg 8-21 mg by ity of tablet 18:48: mouth at [place] 26 bedtime. Medical 1-06/16 tab Branch at bedtime SERTraline Yes 450mg Take 450 Un leanna 100 mg 8-15 mg by ity of tablet 14:54: mouth [place] 02 daily. Medical Branch SERTraline Yes 450mg Take 450 Un leanna 100 mg 8-15 mg by ity of tablet 14:54: mouth [place] 02 daily. Medical Branch SERTraline Yes 450mg Take 450 Un leanna 100 mg 8-15 mg by ity of tablet 14:54: mouth [place] 02 daily. Medical Branch SERTraline Yes 450mg Take 450 Un leanna 100 mg 8-15 mg by ity of tablet 14:54: mouth [place] 02 daily. Medical Branch SERTraline Yes 450mg Take 450 Un leanna 100 mg 8-15 mg by ity of tablet 14:54: mouth [place] 02 daily. Medical Branch SERTraline Yes 450mg Take 450 Un leanna 100 mg 8-15 mg by ity of tablet 14:54: mouth [place] 02 daily. Medical Branch SERTraline Yes 450mg Take 450 Un leanna 100 mg 8-15 mg by ity of tablet 14:54: mouth [place] 02 daily. Medical Branch SERTraline 0 Yes 450mg Take 450 Un leanna 100 mg 8-15 mg by ity of tablet 14:54: mouth [place] 02 daily. Medical Branch SERTraline Yes 450mg Take 450 Un leanna 100 mg 8-15 mg by ity of tablet 14:54: mouth [place] 02 daily. Medical Branch SERTraline Yes 450mg Take 450 Un leanna 100 mg 8-15 mg by ity of tablet 14:54: mouth [place] 02 daily. Medical Branch SERTraline Yes 450mg Take 450 Un leanna 100 mg 8-15 mg by ity of tablet 14:54: mouth [place] 02 daily. Medical Branch SERTraline Yes 450mg Take 450 Un leanna 100 mg 8-15 mg by ity of tablet 14:54: mouth [place] 02 daily. Medical Branch SERTraline Yes 450mg Take 450 Un leanna 100 mg 8-15 mg by ity of tablet 14:54: mouth [place] 02 daily. Medical Branch SERTraline Yes 450mg Take 450 Un leanna 100 mg 8-15 mg by ity of tablet 14:54: mouth [place] 02 daily. Medical Branch SERTraline Yes 450mg Take 450 Un leanna 100 mg 8-15 mg by ity of tablet 14:54: mouth [place] 02 daily. Medical Branch SERTraline Yes 450mg Take 450 Un leanna 100 mg 8-15 mg by ity of tablet 14:54: mouth [place] 02 daily. Medical Branch SERTraline Yes 450mg Take 450 Un leanna 100 mg 8-15 mg by ity of tablet 14:54: mouth [place] 02 daily. Medical Branch SERTraline Yes 450mg Take 450 Un leanna 100 mg 8-15 mg by ity of tablet 14:54: mouth [place] 02 daily. Medical Branch SERTraline Yes 450mg Take 450 Un [place]anna 100 mg 8-15 mg by ity of tablet 14:54: mouth [place] 02 daily. Medical Branch SERTraline Yes 450mg Take 450 Un [place]anna 100 mg 8-15 mg by ity of tablet 14:54: mouth [place] 02 daily. Medical Branch SERTraline Yes 450mg Take 450 Un [place]anna 100 mg 8-15 mg by ity of tablet 14:54: mouth [place] 02 daily. Medical Branch SERTraline Yes 450mg Take 450 Un [place]anna 100 mg 8-15 mg by ity of tablet 14:54: mouth [place] 02 daily. Medical Branch SERTraline Yes 450mg Take 450 Un leanna 100 mg 8-15 mg by ity of tablet 14:54: mouth [place] 02 daily. Medical Branch ranitidine 2019-0 Yes 150mg Take 150 Un [place] 150 mg 8-15 mg by ity of tablet 13:45: mouth 2 [place] [address] (two) Medical times Branch daily. ranitidine 2019-0 Yes 150mg Take 150 Un [place]anna 150 mg 8-15 mg by ity of tablet 13:45: mouth 2 [place] [address] (two) Medical times Branch daily. ranitidine 2019-0 Yes 150mg Take 150 Un [place] 150 mg 8-15 mg by ity of tablet 13:45: mouth 2 [place] [address] (two) Medical times Branch daily. ranitidine 2019-0 Yes 150mg Take 150 Un [place] 150 mg 8-15 mg by ity of tablet 13:45: mouth 2 [place] [address] (two) Medical times Branch daily. ranitidine 2019-0 Yes 150mg Take 150 Un [place] 150 mg 8-15 mg by ity of tablet 13:45: mouth 2 [place] [address] (two) Medical times Branch daily. ranitidine 2019-0 Yes 150mg Take 150 Un [place] 150 mg 8-15 mg by ity of tablet 13:45: mouth 2 [place] [address] (two) Medical times Branch daily. ranitidine 2019-0 Yes 150mg Take 150 Un [place] 150 mg 8-15 mg by ity of tablet 13:45: mouth 2 [place] [address] (two) Medical times Branch daily. albuterol 2019-0 Yes 2{puff} Inhale 2 U nivers (VENTOLIN 8-15 Puffs ity of HFA) 90 13:45: every 4 [place] [facility] (four) Medica l on inhaler hours as Branc h needed for Wheezing or Shortness of Breath. ranitidine 2019-0 Yes 150mg Take 150 Un [place] 150 mg 8-15 mg by ity of tablet 13:45: mouth 2 [place] [address] (two) Medical times Branch daily. QUEtiapine 2019-0 Yes 300mg Take 300 Un [place] 300 mg 8-15 mg by ity of tablet 13:45: mouth at [place] [address] bedtime. Medical 1-1/2 tab Branch at bedtime ranitidine 2019-0 Yes 150mg Take 150 Un [place] 150 mg 8-15 mg by ity of tablet 13:45: mouth 2 [place] [address] (two) Medical times Branch daily. ranitidine 2019-0 Yes 150mg Take 150 Un [place] 150 mg 8-15 mg by ity of tablet 13:45: mouth 2 [place] [address] (two) Medical times Branch daily. ranitidine 2019-0 Yes 150mg Take 150 Un [place] 150 mg 8-15 mg by ity of tablet 13:45: mouth 2 [place] 47 (two) Medical times Branch daily. gabapentin 2019-0 Yes 300mg Take 300 Un leanna ER 300 mg 8-15 mg by ity of tablet, 13:45: mouth 3 [facility] 47 (three) Medical release 24 times Branch hr daily. ranitidine 2019-0 Yes 150mg Take 150 Un [place] 150 mg 8-15 mg by ity of tablet 13:45: mouth 2 [place] [address] (two) Medical times Branch daily. ranitidine 2019-0 Yes 150mg Take 150 Un [place] 150 mg 8-15 mg by ity of tablet 13:45: mouth 2 [place] [address] (two) Medical times Branch daily. ranitidine 2019-0 Yes 150mg Take 150 Un [place] 150 mg 8-15 mg by ity of tablet 13:45: mouth 2 [place] [address] (two) Medical times Branch daily. ranitidine 2019-0 Yes 150mg Take 150 Un [place] 150 mg 8-15 mg by ity of tablet 13:45: mouth 2 [place] [address] (two) Medical times Branch daily. ranitidine 2019-0 Yes 150mg Take 150 Un [place] 150 mg 8-15 mg by ity of tablet 13:45: mouth 2 [place] [address] (two) Medical times Branch daily. ranitidine 2019-0 Yes 150mg Take 150 Un [place] 150 mg 8-15 mg by ity of tablet 13:45: mouth 2 [place] [address] (two) Medical times Branch daily. ranitidine 2019-0 Yes 150mg Take 150 Un [place] 150 mg 8-15 mg by ity of tablet 13:45: mouth 2 [place] [address] (two) Medical times Branch daily. albuterol 2019-0 Yes 2{puff} Inhale 2 U nivers (VENTOLIN 8-15 Puffs ity of HFA) 90 13:45: every 4 [place] mcg/actuati 47 (four) Medica l on inhaler hours as Branc h needed for Wheezing or Shortness of Breath. QUEtiapine 2019-0 Yes 300mg Take 300 Un leanna 300 mg 8-15 mg by ity of tablet 13:45: mouth at [place] [address] bedtime. Medical 1-/2 tab Branch at bedtime ranitidine 2019-0 Yes 150mg Take 150 Un leanan 150 mg 8-15 mg by ity of tablet 13:45: mouth 2 [place] 47 (two) Medical times Branch daily. gabapentin 2019-0 Yes 300mg Take 300 Un leanna ER 300 mg 8-15 mg by ity of tablet, 13:45: mouth 3 [place] extended 47 (three) Medical release 24 times Branch hr daily. ranitidine 2019-0 Yes 150mg Take 150 Un leanna 150 mg 8-15 mg by ity of tablet 13:45: mouth 2 [place] 47 (two) Medical times Branch daily. ranitidine 2019-0 Yes 150mg Take 150 Un leanna 150 mg 8-15 mg by ity of tablet 13:45: mouth 2 [place] 47 (two) Medical times Branch daily. ranitidine 2019-0 Yes 150mg Take 150 Un leanna 150 mg 8-15 mg by ity of tablet 13:45: mouth 2 [place] 47 (two) Medical times Branch daily. ranitidine 2019-0 Yes 150mg Take 150 Un leanna 150 mg 8-15 mg by ity of tablet 13:45: mouth 2 [place] 47 (two) Medical times Branch daily. SERTraline 2019-0 Yes 450mg Take 450 Un leanna 100 mg 8-15 mg by ity of tablet 09:54: mouth [place] 02 daily. Medical Branch SERTraline 2019-0 Yes 450mg Take 450 Un leanna 100 mg 8-15 mg by ity of tablet 09:54: mouth [place] 02 daily. Medical Branch SERTraline 2019-0 Yes 450mg Take 450 Un leanna 100 mg 8-15 mg by ity of tablet 09:54: mouth [place] 02 daily. Medical Branch SERTraline 2019-0 Yes 450mg Take 450 Un leanna 100 mg 8-15 mg by ity of tablet 09:54: mouth [place] 02 daily. Medical Branch SERTraline 2019-0 Yes 450mg Take 450 Un leanna 100 mg 8-15 mg by ity of tablet 09:54: mouth [place] 02 daily. Medical Branch SERTraline 2019-0 Yes 450mg Take 450 Un leanna 100 mg 8-15 mg by ity of tablet 09:54: mouth [place] 02 daily. Medical Branch SERTraline 2019-0 Yes 450mg Take 450 Un leanna 100 mg 8-15 mg by ity of tablet 09:54: mouth [place] 02 daily. Medical Branch SERTraline 2019-0 Yes 450mg Take 450 Un leanna 100 mg 8-15 mg by ity of tablet 09:54: mouth [place] 02 daily. Medical Branch SERTraline 2019-0 Yes 450mg Take 450 Un leanna 100 mg 8-15 mg by ity of tablet 09:54: mouth [place] 02 daily. Medical Branch SERTraline 2019-0 Yes 450mg Take 450 Un leanna 100 mg 8-15 mg by ity of tablet 09:54: mouth [place] 02 daily. Medical Branch SERTraline 2019-0 Yes 450mg Take 450 Un leanna 100 mg 8-15 mg by ity of tablet 09:54: mouth [place] 02 daily. Medical Branch ranitidine 2019-0 Yes 150mg Take 150 Un leanna 150 mg 8-15 mg by ity of tablet 08:45: mouth 2 [place] [address] (two) Medical times Branch daily. ranitidine 2019-0 Yes 150mg Take 150 Un leanna 150 mg 8-15 mg by ity of tablet 08:45: mouth [address] [place] [address] (two) Medical times Branch daily. ranitidine 2019-0 Yes 150mg Take 150 Un leanna 150 mg 8-15 mg by ity of tablet 08:45: mouth [address] [place] [address] (two) Medical times Branch daily. ranitidine 2019-0 Yes 150mg Take 150 Un leanna 150 mg 8-15 mg by ity of tablet 08:45: mouth [address] [place] [address] (two) Medical times Branch daily. ranitidine 2019-0 Yes 150mg Take 150 Un leanna 150 mg 8-15 mg by ity of tablet 08:45: mouth [address] [place] [address] (two) Medical times Branch daily. ranitidine 2019-0 Yes 150mg Take 150 Un leanna 150 mg 8-15 mg by ity of tablet 08:45: mouth 2 [place] [address] (two) Medical times Branch daily. ranitidine 2019-0 Yes 150mg Take 150 Un leanna 150 mg 8-15 mg by ity of tablet 08:45: mouth 2 [place] [address] (two) Medical times Branch daily. ranitidine 2019-0 Yes 150mg Take 150 Un leanna 150 mg 8-15 mg by ity of tablet 08:45: mouth 2 [place] [address] (two) Medical times Branch daily. ranitidine 2019-0 Yes 150mg Take 150 Un leanna 150 mg 8-15 mg by ity of tablet 08:45: mouth 2 [place] 47 (two) Medical times Branch daily. ranitidine 2019-0 Yes 150mg Take 150 Un leanna 150 mg 8-15 mg by ity of tablet 08:45: mouth 2 [place] 47 (two) Medical times Branch daily. ranitidine 2019-0 Yes 150mg Take 150 Un leanna 150 mg 8-15 mg by ity of tablet 08:45: mouth 2 [place] 47 (two) Medical times Branch daily. metoprolol 2018-0 Yes [id number] 25mg Take 1 U nivers succinate 8-15 tablet by ity o f XL 25 mg 24 00:00: mouth [place] hr tablet 00 every 24 Medica l (twenty-fo Branch ur) hours. amLODIPine 2018-0 Yes [id number] 5mg Take 1 U nivers 5 mg tablet 8-15 tablet by ity of 00:00: mouth [place] 00 daily. Medical Branch metoprolol 2018-0 Yes [id number] 25mg Take 1 U nivers succinate 8-15 tablet by ity o f XL 25 mg 24 00:00: mouth [place] hr tablet 00 every 24 Medica l (twenty-fo Branch ur) hours. amLODIPine 2018-0 Yes [id number] 5mg Take 1 U nivers 5 mg tablet 8-15 tablet by ity of 00:00: mouth [place] 00 daily. Medical Branch metoprolol 2018-0 Yes [id number] 25mg Take 1 U nivers succinate 8-15 tablet by ity o f XL 25 mg 24 00:00: mouth [place] hr tablet 00 every 24 Medica l (twenty-fo Branch ur) hours. amLODIPine 2018-0 Yes [id number] 5mg Take 1 U nivers 5 mg tablet 8-15 tablet by ity of 00:00: mouth [place] 00 daily. Medical Branch metoprolol 2018-0 Yes [id number] 25mg Take 1 U nivers succinate 8-15 tablet by ity o f XL 25 mg 24 00:00: mouth [place] hr tablet 00 every 24 Medica l (twenty-fo Branch ur) hours. amLODIPine 2018-0 Yes [id number] 5mg Take 1 U nivers 5 mg tablet 8-15 tablet by ity of 00:00: mouth [place] 00 daily. Medical Branch metoprolol 2018-0 Yes [id number] 25mg Take 1 U nivers succinate 8-15 tablet by ity o f XL 25 mg 24 00:00: mouth [place] hr tablet 00 every 24 Medica l (twenty-fo Branch ur) hours. amLODIPine Yes [id number] 5mg Take 1 U nivers 5 mg tablet 8-15 tablet by ity of 00:00: mouth [place] 00 daily. Medical Branch metoprolol Yes [id number] 25mg Take 1 U nivers succinate 8-15 tablet by ity o f XL 25 mg 24 00:00: mouth [place] hr tablet 00 every 24 Medica l (twenty-fo Branch ur) hours. amLODIPine Yes [id number] 5mg Take 1 U nivers 5 mg tablet 8-15 tablet by ity of 00:00: mouth [place] 00 daily. Medical Branch metoprolol Yes [id number] 25mg Take 1 U nivers succinate 8-15 tablet by ity o f XL 25 mg 24 00:00: mouth [place] hr tablet 00 every 24 Medica l (twenty-fo Branch ur) hours. amLODIPine Yes [id number] 5mg Take 1 U nivers 5 mg tablet 8-15 tablet by ity of 00:00: mouth [place] 00 daily. Medical Branch metoprolol Yes [id number] 25mg Take 1 U nivers succinate 8-15 tablet by ity o f XL 25 mg 24 00:00: mouth [place] hr tablet 00 every 24 Medica l (twenty-fo Branch ur) hours. amLODIPine Yes [id number] 5mg Take 1 U nivers 5 mg tablet 8-15 tablet by ity of 00:00: mouth [place] 00 daily. Medical Branch metoprolol 0 Yes [id number] 25mg Take 1 U nivers succinate 8-15 tablet by ity o f XL 25 mg 24 00:00: mouth [place] hr tablet 00 every 24 Medica l (twenty-fo Branch ur) hours. amLODIPine Yes [id number] 5mg Take 1 U nivers 5 mg tablet 8-15 tablet by ity of 00:00: mouth [place] 00 daily. Medical Branch metoprolol 2020- No [id number] 25mg Take 1 Univers succinate 8-15 01-16 tablet by ity of XL 25 mg 24 00:00: 00:00 [place] hr tablet 00 :00 every 24 Medica l (twenty-fo Branch ur) hours. amLODIPine 2019- No [id number] 5mg Take 1 Univers 5 mg tablet 8-15 -16 tablet by it y of 00:00: 00:00 mouth [place] 00 :00 daily. Medical Branch metoprolol 2020- No [id number] 25mg Take 1 Univers succinate 8-15 -16 tablet by ity of XL 25 mg 24 00:00: 00:00 [place] hr tablet 00 :00 every 24 Medica l (-fo Branch ur) hours. amLODIPine 2019- No [id number] 5mg Take 1 Univers 5 mg tablet 8-15 -16 tablet by it y of 00:00: 00:00 mouth [place] 00 :00 daily. Medical Branch METOPROLOL 2018- No [id number] TAKE 1 Univers SUCCINATE 5-28 08-15 TABLET BY ity of XL 25 mg 24 00:00: 00:00 MOUTH ONCE [place] hr tablet 00 :00 DAILY Medical Branch METOPROLOL 2019- No [id number] TAKE 1 Univers SUCCINATE 5-28 08-15 TABLET BY ity of XL 25 mg 24 00:00: 00:00 MOUTH ONCE [place] hr tablet 00 :00 DAILY Medical Branch METOPROLOL 2019- No [id number] TAKE 1 Univers SUCCINATE 5-28 08-15 TABLET BY ity of XL 25 mg 24 00:00: 00:00 MOUTH ONCE [place] hr tablet 00 :00 DAILY Medical Branch AMLODIPINE 2019- No [id number] TAKE 1 Univers 5 mg tablet 3-29 08-15 TABLET BY it y of 00:00: 00:00 MOUTH ONCE [place] 00 :00 DAILY Medical Branch AMLODIPINE 2019- No [id number] TAKE 1 Univers 5 mg tablet 3-29 08-15 TABLET BY it y of 00:00: 00:00 MOUTH ONCE [place] 00 :00 DAILY Medical Branch AMLODIPINE 2019- No [id number] TAKE 1 Univers 5 mg tablet 3-29 08-15 TABLET BY it y of 00:00: 00:00 MOUTH ONCE [place] 00 :00 DAILY Medical Branch Immunizations Ordered Filled Immunization Date Status Comments Sour e Immunization Name Name Pneumococcal 2019-07-07 Completed Welcome o f Polysaccharide, 00:00:00 [facility] PPSV23 (PNEUMOVAX) Branch Tdap 2019-07-07 Completed Welcome of 00:00:00 [facility] Zoster Vaccine 2019-07-07 Completed University of Recombinant 00:00:00 [facility] Pneumococcal 2019-07-07 Completed University o f Polysaccharide, 00:00:00 [place] Med ical PPSV23 (PNEUMOVAX) Branch Tdap 2019-07-07 Completed University of 00:00:00 [facility] Zoster Vaccine 2019-07-07 Completed University of Recombinant 00:00:00 [facility] Pneumococcal 2019-07-07 Completed University o f Polysaccharide, 00:00:00 [place] Med ical PPSV23 (PNEUMOVAX) Branch Tdap 2019-07-07 Completed University of 00:00:00 [facility] Zoster Vaccine 2019-07-07 Completed University of Recombinant 00:00:00 [facility] Pneumococcal 2019-07-07 Completed University o f Polysaccharide, 00:00:00 [place] [facility] ical PPSV23 (PNEUMOVAX) Branch Tdap 2019-07-07 Completed University of 00:00:00 [facility] Zoster Vaccine 2019-07-07 Completed University of Recombinant 00:00:00 [facility] Pneumococcal 2019-07-07 Completed University o f Polysaccharide, 00:00:00 [place] [facility] ical PPSV23 (PNEUMOVAX) Branch Tdap 2019-07-07 Completed University of 00:00:00 [facility] Zoster Vaccine 2019-07-07 Completed University of Recombinant 00:00:00 [facility] Pneumococcal 2019-07-07 Completed University o f Polysaccharide, 00:00:00 [place] [facility] ical PPSV23 (PNEUMOVAX) Branch Tdap 2019-07-07 Completed University of 00:00:00 [facility] Zoster Vaccine 2019-07-07 Completed University of Recombinant 00:00:00 [facility] Pneumococcal 2019-07-07 Completed University o f Polysaccharide, 00:00:00 [place] Med ical PPSV23 (PNEUMOVAX) Branch Tdap 2019-07-07 Completed University of 00:00:00 [facility] Zoster Vaccine 2019-07-07 Completed University of Recombinant 00:00:00 [facility] Pneumococcal 2019-07-07 Completed University o f Polysaccharide, 00:00:00 [place] Med ical PPSV23 (PNEUMOVAX) Branch TDAP 2019-07-07 Completed University of 00:00:00 [facility] Zoster Vaccine 2019-07-07 Completed University of Recombinant 00:00:00 [facility] Pneumococcal 2019-07-07 Completed University o f Polysaccharide, 00:00:00 [place] Med ical PPSV23 (PNEUMOVAX) Branch TDAP 2019-07-07 Completed University of 00:00:00 [facility] Zoster Vaccine 2019-07-07 Completed University of Recombinant 00:00:00 [facility] Pneumococcal 2019-07-07 Completed University o f Polysaccharide, 00:00:00 [place] Med ical PPSV23 (PNEUMOVAX) Branch TDAP 2019-07-07 Completed University of 00:00:00 [facility] Zoster Vaccine 2019-07-07 Completed University of Recombinant 00:00:00 [facility] Pneumococcal 2019-07-07 Completed University o f Polysaccharide, 00:00:00 [place] Med ical PPSV23 (PNEUMOVAX) Branch TDAP 2019-07-07 Completed University of 00:00:00 [facility] Zoster Vaccine 2019-07-07 Completed University of Recombinant 00:00:00 [facility] Pneumococcal 2019-07-07 Completed University o f Polysaccharide, 00:00:00 [place] Med ical PPSV23 (PNEUMOVAX) Branch TDAP 2019-07-07 Completed University of 00:00:00 [facility] Zoster Vaccine 2019-07-07 Completed University of Recombinant 00:00:00 [facility] Pneumococcal 2019-07-07 Completed University o f Polysaccharide, 00:00:00 [place] [facility] ical PPSV23 (PNEUMOVAX) Branch TDAP 2019-07-07 Completed University of 00:00:00 [facility] Zoster Vaccine 2019-07-07 Completed University of Recombinant 00:00:00 [facility] Pneumococcal 2019-07-07 Completed University o f Polysaccharide, 00:00:00 [place] [facility] ical PPSV23 (PNEUMOVAX) Branch TDAP 2019-07-07 Completed University of 00:00:00 [facility] Zoster Vaccine 2019-07-07 Completed University of Recombinant 00:00:00 [facility] Pneumococcal 2019-07-07 Completed University o f Polysaccharide, 00:00:00 [place] [facility] ical PPSV23 (PNEUMOVAX) Branch TDAP 2019-07-07 Completed University of 00:00:00 [facility] Zoster Vaccine 2019-07-07 Completed University of Recombinant 00:00:00 [facility] Pneumococcal 2019-07-07 Completed University o f Polysaccharide, 00:00:00 [place] [facility] ical PPSV23 (PNEUMOVAX) Branch TDAP 2019-07-07 Completed University of 00:00:00 [facility] Zoster Vaccine 2019-07-07 Completed University of Recombinant 00:00:00 [facility] Pneumococcal 2019-07-07 Completed University o f Polysaccharide, 00:00:00 [facility] [place] ical PPSV23 (PNEUMOVAX) Branch TDAP 2019-07-07 Completed University of 00:00:00 [facility] Zoster Vaccine 2019-07-07 Completed University of Recombinant 00:00:00 [facility] Pneumococcal 2019-07-07 Completed University o f Polysaccharide, 00:00:00 [facility] [place] ical PPSV23 (PNEUMOVAX) Branch TDAP 2019-07-07 Completed University of 00:00:00 [facility] Zoster Vaccine 2019-07-07 Completed University of Recombinant 00:00:00 [facility] Pneumococcal 2019-07-07 Completed University o f Polysaccharide, 00:00:00 [facility] [place] ical PPSV23 (PNEUMOVAX) Branch TDAP 2019-07-07 Completed University of 00:00:00 [facility] Zoster Vaccine 2019-07-07 Completed University of Recombinant 00:00:00 [facility] Influenza Virus 2018-04-29 Completed Universit y of Vaccine Quad .5 mL 00:00:00 [place] [facility] IM 6+ MO Branch Influenza Virus 2018-04-29 Completed Universit y of Vaccine Quad .5 mL 00:00:00 [place] [facility] IM 6+ MO Branch Influenza Virus 2018-04-29 Completed Universit y of Vaccine Quad .5 mL 00:00:00 [facility] 6+ MO Branch Influenza Virus 2018-04-29 Completed Universit y of Vaccine Quad .5 mL 00:00:00 [place] [facility] IM 6+ MO Branch Influenza Virus 2018-04-29 Completed Universit y of Vaccine Quad .5 mL 00:00:00 [place] [facility] IM 6+ MO Branch Influenza Virus 2018-04-29 Completed Universit y of Vaccine Quad .5 mL 00:00:00 [place] [facility] IM 6+ MO Branch Influenza Virus 2018-04-29 Completed Universit y of Vaccine Quad .5 mL 00:00:00 [place] [facility] IM 6+ MO Branch Influenza Virus 2018-04-29 Completed Universit y of Vaccine [place] .5 mL 00:00:00 [place] [facility] IM 6+ MO Branch Influenza Virus 2018-04-29 Completed Universit y of Vaccine Quad .5 mL 00:00:00 [place] [facility] IM 6+ MO Branch Influenza Virus 2018-04-29 Completed Universit y of Vaccine Quad .5 mL 00:00:00 [place] [facility] IM 6+ MO Branch Influenza Virus 2018-04-29 Completed Universit y of Vaccine Quad .5 mL 00:00:00 [place] [facility] IM 6+ MO Branch Influenza Virus 2018-04-29 Completed Universit y of Vaccine Quad .5 mL 00:00:00 [place] [facility] IM 6+ MO Branch Influenza Virus 2018-04-29 Completed Universit y of Vaccine [place] .5 mL 00:00:00 [place] [facility] IM 6+ MO Branch Influenza Virus 2018-04-29 Completed Universit y of Vaccine [place] .5 mL 00:00:00 [place] [facility] IM 6+ MO Branch Influenza Virus 2018-04-29 Completed Universit y of Vaccine [place] .5 mL 00:00:00 [place] [facility] IM 6+ MO Branch Influenza Virus 2018-04-29 Completed Universit y of Vaccine Quad .5 mL 00:00:00 [place] [facility] IM 6+ MO Branch Influenza Virus 2018-04-29 Completed Universit y of Vaccine Quad .5 mL 00:00:00 [place] [facility] IM 6+ MO Branch Influenza Virus 2018-04-29 Completed Universit y of Vaccine Quad .5 mL 00:00:00 [place] [facility] IM 6+ MO Branch Influenza Virus 2018-04-29 Completed Universit y of Vaccine Quad .5 mL 00:00:00 [place] [facility] IM 6+ MO Branch Influenza Virus 2018-04-29 Completed Universit y of Vaccine Quad .5 mL 00:00:00 [place] [facility] IM 6+ MO Branch Influenza Virus 2018-04-29 Completed Universit y of Vaccine [place] .5 mL 00:00:00 [place] [facility] IM 6+ MO Branch Influenza Virus 2018-04-29 Completed Universit y of Vaccine Quad .5 mL 00:00:00 [place] [facility] IM 6+ MO Branch Influenza Virus 2018-04-29 Completed Universit y of Vaccine Quad .5 mL 00:00:00 [place] [facility] IM 6+ MO Branch Influenza Virus 2018-04-29 Completed Universit y of Vaccine Quad .5 mL 00:00:00 [place] [facility] IM 6+ MO Branch Influenza Virus 2018-04-29 Completed Universit y of Vaccine Quad .5 mL 00:00:00 [place] [facility] IM 6+ MO Branch Influenza Virus 2018-04-29 Completed Universit y of Vaccine Quad .5 mL 00:00:00 [place] [facility] IM 6+ MO Branch Influenza Virus 2018-04-29 Completed Universit y of Vaccine Quad .5 mL 00:00:00 [place] [facility] IM 6+ MO Branch Influenza Virus 2018-04-29 Completed Universit y of Vaccine Quad .5 mL 00:00:00 [place] [facility] IM 6+ MO Branch Influenza Virus 2018-04-29 Completed Universit y of Vaccine Quad .5 mL 00:00:00 [place] [facility] IM 6+ MO Branch Influenza Virus 2018-04-29 Completed Universit y of Vaccine Quad .5 mL 00:00:00 [place] [facility] IM 6+ MO Branch Influenza Virus 2018-04-29 Completed Universit y of Vaccine Quad .5 mL 00:00:00 [place] [facility] IM 6+ MO Branch Influenza Virus 2018-04-29 Completed Universit y of Vaccine Quad .5 mL 00:00:00 [place] [facility] IM 6+ MO Branch Influenza Virus 2018-04-29 Completed Universit y of Vaccine Quad .5 mL 00:00:00 [place] [facility] IM 6+ MO Branch Influenza Virus 2018-04-29 Completed Universit y of Vaccine Quad .5 mL 00:00:00 [facility] 6+ MO Branch Vital Signs Vital Name Observation Time Observation Value Comments Source Systolic blood 2022-08-04 18:32:00 118 mm[Hg] Univer sity of pressure [facility] Diastolic blood 2022-08-04 18:32:00 80 mm[Hg] Unive rsity of [facility] Heart rate 2022-08-04 18:32:00 63 /min [facility] Body temperature 2022-08-04 18:32:00 36.5 Elaine [facility] Respiratory rate 2022-08-04 18:32:00 17 /min [facility] Body weight 2022-08-04 18:32:00 71.079 kg [facility] BMI 2022-08-04 18:32:00 23.14 kg/m2 [facility] Oxygen saturation in 2022-08-04 18:32:00 98 /min [facility] Arterial blood by [facility] Pulse oximetry Branch Systolic blood 2022-07-09 16:37:00 192 mm[Hg] Univer sity of pressure [facility] Diastolic blood 2022-07-09 16:37:00 110 mm[Hg] Unive rsity of pressure [facility] Heart rate 2022-07-09 16:33:00 95 /min [facility] Body temperature 2022-07-09 16:33:00 36.39 Elaine [facility] ersity of [place] [facility] Respiratory rate 2022-07-09 16:33:00 12 /min Univ ersity of [place] [facility] Body height 2022-07-09 16:33:00 175.3 cm Universi ty of [place] [facility] Body weight 2022-07-09 16:33:00 69.718 kg Universi ty of [place] [facility] BMI 2022-07-09 16:33:00 22.70 kg/m2 Universi ty of [place] [facility] Oxygen saturation in 2022-07-09 16:33:00 99 /min University of Arterial blood by [place] [employer] [facility] Pulse oximetry Branch Systolic blood 2022-04-25 19:54:00 146 mm[Hg] Univer sity of pressure [place] [facility] Diastolic blood 2022-04-25 19:54:00 94 mm[Hg] Unive rsity of pressure [place] [facility] Heart rate 2022-04-25 19:54:00 89 /min Universi ty of [place] [facility] Body temperature 2022-04-25 19:54:00 36.94 Elaine [facility] ersity of [place] [facility] Respiratory rate 2022-04-25 19:54:00 16 /min Univ ersity of [place] [facility] Body height 2022-04-25 19:54:00 175.3 cm Universi ty of [place] [facility] Body weight 2022-04-25 19:54:00 72.122 kg Universi ty of [place] [facility] BMI 2022-04-25 19:54:00 23.48 kg/m2 Universi ty of [place] [facility] Oxygen saturation in 2022-04-25 19:54:00 97 /min University of Arterial blood by [place] [employer] [facility] Pulse oximetry Branch Systolic blood 2021-12-13 15:44:00 170 mm[Hg] Univer sity of pressure [place] [facility] Diastolic blood 2021-12-13 15:44:00 106 mm[Hg] Unive rsity of pressure [place] [facility] Heart rate 2021-12-13 15:42:00 78 /min Universi ty of [place] [facility] Body temperature 2021-12-13 15:42:00 36.78 Elaine [facility] ersity of [place] [facility] Respiratory rate 2021-12-13 15:42:00 18 /min Univ ersity of [place] [facility] Body height 2021-12-13 15:42:00 175.3 cm [facility]i ty of [place] [facility] Body weight 2021-12-13 15:42:00 73.165 kg Universi ty of [place] [facility] BMI 2021-12-13 15:42:00 23.82 kg/m2 Universi ty of [place] [facility] Oxygen saturation in 2021-12-13 15:42:00 98 /min University of Arterial blood by [facility] Pulse oximetry Branch Systolic blood 2019-08-26 16:18:00 115 mm[Hg] Univer sity of pressure [place] [facility] Diastolic blood 2019-08-26 16:18:00 74 mm[Hg] Unive rsity of pressure [place] [facility] Heart rate 2019-08-26 16:18:00 85 /min Universi ty of [place] [facility] Respiratory rate 2019-08-26 16:18:00 19 /min Univ ersity of [place] [facility] Body height 2019-08-26 16:18:00 175.3 cm Universi ty of [place] [facility] Body weight 2019-08-26 16:18:00 81.647 kg Universi ty [facility] [place] [facility] BMI 2019-08-26 16:18:00 26.58 kg/m2 Universi ty of [place] [facility] Oxygen saturation in 2019-08-26 16:18:00 96 /min University of Arterial blood by [facility] Pulse oximetry Branch Systolic blood 2019-06-30 15:37:00 105 mm[Hg] Univer sity of pressure [place] [facility] Diastolic blood 2019-06-30 15:37:00 71 mm[Hg] Unive rsity of pressure [place] [facility] Heart rate 2019-06-30 15:37:00 85 /min [facility]i ty [facility] [place] [facility] Body temperature 2019-06-30 15:37:00 36.33 Elaine [facility] ersity of [place] [facility] Respiratory rate 2019-06-30 15:37:00 20 /min Univ ersity of [place] [facility] Body height 2019-06-30 15:37:00 175.3 cm [facility]i [facility] [place] [facility] Body weight 2019-06-30 15:37:00 87.544 kg Universi ty of [place] [facility] BMI 2019-06-30 15:37:00 28.50 kg/m2 Universi ty of [place] [facility] Systolic blood 2019-01-27 13:36:00 108 mm[Hg] Univer sity of pressure [place] [facility] [place] Diastolic blood 2019-01-27 13:36:00 69 mm[Hg] Unive rsity of pressure [facility] Heart rate 2019-01-27 13:36:00 97 /min Universi ty of [place] [facility] [place] Body temperature 2019-01-27 13:36:00 36.67 Elaine Univ ersity of [facility] Respiratory rate 2019-01-27 13:36:00 20 /min Univ ersity of [facility] Body height 2019-01-27 13:36:00 175.3 cm Universi ty of [place] [facility] [place] Body weight 2019-01-27 13:36:00 82.555 kg Universi ty of [place] [facility] [place] BMI 2019-01-27 13:36:00 26.88 kg/m2 Universi ty of [facility] Systolic blood 2019-02-02 18:48:00 100 mm[Hg] Univer sity of pressure [facility] Diastolic blood 2019-02-02 18:48:00 67 mm[Hg] Unive rsity of [facility] Heart rate 2019-02-02 18:48:00 87 /min Universi ty of [place] [facility] Respiratory rate 2019-02-02 18:48:00 20 /min Univ ersity of [facility] Body height 2019-02-02 18:48:00 175.3 cm [facility]i ty of [place] [facility] Body weight 2019-02-02 18:48:00 85.186 kg [facility]i ty of [place] [facility] BMI 2019-02-02 18:48:00 27.73 kg/m2 Universi ty of [facility] Oxygen saturation in 2019-02-02 18:48:00 97 /min [facility] Arterial blood by [facility] Pulse oximetry Branch BP Systolic 2021-11-27 15:42:00 101 mm[Hg] BP Diastolic 2021-11-27 15:42:00 63 mm[Hg] Weight Measured 2021-11-27 15:42:00 158.80 pounds Height Measured 2021-11-27 15:42:00 68.50 inches Body Temperature 2021-11-27 15:42:00 98.40 degrees Heart Rate 2021-11-27 15:42:00 87.00 /min Respiratory Rate 2021-11-27 15:42:00 BP Systolic 2021-09-18 16:33:00 182 mm[Hg] BP Diastolic 2021-09-18 16:33:00 107 mm[Hg] Weight Measured 2021-09-18 16:33:00 162.60 pounds Height Measured 2021-09-18 16:33:00 68.50 inches Body Temperature 2021-09-18 16:33:00 98.50 degrees Heart Rate 2021-09-18 16:33:00 82.00 /min Respiratory Rate 2021-09-18 16:33:00 Procedures Procedure Date / Time Performing Clinician Source Performed [facility] PATIENT FINANCIAL 2022-09-22 12:50:24 Doctor Unassigned, No [facility] POLICY [facility] PATIENT FINANCIAL 2022-08-21 13:50:15 Doctor Unassigned, No [facility] ASSIGNMENT OF BENEFITS 2021-12-13 15:33:13 Doctor Unassigned, No [facility] CONSENT/REFUSAL FOR 2019-07-26 15:47:08 Doctor Unassigned, No [facility] [place] [facility] AND TREATMENT [facility] ASSIGNMENT OF BENEFITS 2019-07-26 15:46:47 Doctor Unassigned, No [facility] CT LUNG CANCER SCREENING 2019-07-26 14:29:[address] [facility] SCANNED LAB RESULTS 2019-06-30 06:01:00 Doctor Unassigned, No [facility] EXTERNAL PROVIDER 2019-02-03 05:01:00 Doctor Unassigned, No [facility] [place] RECORDS [facility] AUTHORIZATION TO RELEASE 2019-01-27 05:01:00 Doctor Unassigned, No [facility] PHI TO [facility] Plan of Care Planned Activity Planned Date Details Comments Source Goal Plan of Care Note [code = 06908-2] Goal Plan of Care Note [code = 97123-0] Goal Plan of Care Note [code = 78714-8] Goal Plan of Care Note [code = 65520-0] Goal Plan of Care Note [code = 59261-9] Goal Plan of Care Note [code = 27492-6] Goal Plan of Care Note [code = 19172-2] Goal Plan of Care Note [code = 18747-1] Encounters Start End Encounter Admission Attending Care Care Encounter Source Date/Time Date/Time Type Type Clinicians Facility Department ID 2022-10-13 2022-10-13 Ancillary Derek Romano [facility] 1.2.840. 114 [id number] Univers 08:00:00 08:45:00 Visit Wilian Barnett 350.1.13.10 [phone] Ct dical NAL 179 [facility] 2022-10-13 2022-10-13 Outpatient R MOE [facility] [id number] Univers 08:00:00 08:00:00 WILIAN itmatty [facility] 2022-09-29 2022-09-29 Outpatient Brennen RAE [facility] [id number] Univers 08:45:00 08:45:00 KARYN ity [facility] 2022-09-22 2022-09-22 Ancillary Derek Romano [facility] 1.2.840. 114 [id number] Univers 08:00:00 08:51:03 Visit Karyn Rae 350.1.13.10 it[place] [phone] Ct dical NAL 179 [facility] 2022-09-22 2022-09-22 Orders Doctor MARIA ISABEL 1.2.840.114 [id number] Univers 00:00:00 00:00:00 Only Unassigned, MIKE 350.1.13.10 ity of [place] [facility] 4.2.7.2.686 Dmitri as [phone] [address] 2022-09-11 2022-09-11 Outpatient Brennen RAE [facility] [id number] Univers 08:00:00 08:00:00 KARYN ity [facility] 2022-09-08 2022-09-08 Outpatient SFA KIMBERLY [id number] Yung 11:33:48 11:33:48 [id number] F Yonatan 2022-08-21 2022-08-21 Ancillary Zulma Kelly [facility] 1.2.84 0.114 [id number] Univers 08:00:00 08:45:00 Visit Karyn Rae 350.1.13.10 [place]SS[place] [phone] Ct dical NHAN 179 [facility] 2022-08-21 2022-08-21 Orders Doctor MARIA ISABEL 1.2.840.114 [id number] Univers 00:00:00 00:00:00 Only Unassigned, MIKE 350.1.13.10 ity of [place] [facility] 4.2.7.2.686 Dmitri as [phone] [address] 2022-08-04 2022-08-04 Outpatient Brennen RAE [facility] [id number] Univers 12:20:00 13:38:05 [facility] 2022-08-04 2022-08-04 Urgent Butch Karyn [facility] 1.2.840.114 [id number] Univers 12:20:00 12:40:00 Care Unknown, Attending HEALTH 350.1.13.10 ity of [place] 4.2.7.2.686 Dmitri as JULIA?BLEA [phone] Ct víctorlisa [facility] OFFICE [facility] 2022-07-21 2022-07-21 Outpatient SFA [facility] [id number] Yung 11:42:01 11:42:01 [id number] F [place] 2022-07-09 2022-07-09 Outpatient Brennen RAE [facility] [id number] Univers 10:20:00 11:12:54 [facility] 2022-07-09 2022-07-09 Urgent Butch [facility] 1.2.840.114 [id number] Univers 10:20:00 11:12:54 Care Unknown, Attending HEALTH 350.1.13.10 ity of [place] 4.2.7.2.686 Dmitri as JULIA?BLEA [phone] [address] OFFICE [facility] 2022-06-24 2022-06-24 Outpatient [id number] 00:00:00 00:00:00 Visit [id number] 2713-11-11 2022-04-25 Urgent Colten Altman [facility] 1.2.840.114 [id number] Univers 13:40:00 14:00:00 Care Unknown, Attending HEALTH 350.1.13.10 ity of [place] 4.2.7.2.686 Dmitri as JULIA?BLEA [phone] [address] MEDICAL OFFICE BUILDING 2022-04-25 2022-04-25 Outpatient R UNKNOWN, ATTENDING [facility] [id number] Univers 13:40:00 13:40:00 COLTEN ALTMAN [facility] 2021-12-13 2021-12-13 Outpatient R AGAPITO [facility] [id number] Univers 10:40:00 11:07:42 COLTEN [facility] 2021-12-13 2021-12-13 Urgent Agapito [facility] 1.2.840.114 [id number] Univers 10:40:00 11:07:42 Care [facility] 350.1.13.10 it y of [place] 4.2.7.2.686 Dmitri as JULIA?BLEA [phone] [address] MEDICAL OFFICE [facility] 2021-12-13 2021-12-13 Orders Doctor MARIA ISABEL 1.2.840.114 [id number] Univers 00:00:00 00:00:00 Only Unassigned, MIKE 350.1.13.10 ity of [place] [facility] 4.2.7.2.686 Dmitri as [phone] [facility] [address] 2020-05-12 2020-05-12 Anju Ames [facility] 1.2.840.114 [id number] Univers 00:00:00 00:00:00 SPECIALTY 350.1.13.10 it[place] of [place] [phone] [facility] [address] 2020-02-06 2020-02-06 Outpatient R RADHA, [facility] [id number] Univers 10:40:00 10:40:00 SINGH ray [facility] 2020-01-02 2020-01-02 Outpatient R JYOTI, [facility] [id number] Univers 13:00:00 13:00:00 MEME kirkland [facility] 2019-12-06 2019-12-06 Outpatient R MICHELLE [facility] [id number] Univers 15:00:00 15:00:00 RONEY [place] o f [facility] 2019-11-28 2019-11-28 Telephone Anju Rasmussen 1.2.840.114 [id number] Univers 00:00:00 00:00:00 [facility] 350.1.13.10 it y of [facility] 4.2.7.2.686 [facility] [id number] [facility] [address] [place] 2019-10-06 2019-10-06 Out[facility] [id number] Univers 14:00:00 14:00:00 VERNA ity of [facility] 2019-08-26 2019-08-26 [facility] 1.2.840.114 [id number] Univers 11:03:12 11:43:57 Visit Rasta Regan 350.1.13.10 i ty of [place] 4.2.7.2.686 [facility] Professio [phone] Ct dical nal 085 [facility] 2019-08-26 2019-08-26 Outpatient R RASTA MARTINS [facility] [id number] Univers 11:20:00 11:20:00 RASTA MARTINS i ty of [facility] 2019-08-01 2019-08-01 Telephone Anju Rasmussen [facility] 1.2.840.114 [id number] Univers 00:00:00 00:00:00 SPECIALTY 350.1.13.10 ity of [place] 4.2.7.2.686 [facility] s COLONY [id number] [facility] [address] 2019-07-26 2019-07-26 Outpatient R GRADY ANJU [facility] [id number] Univers 08:07:02 23:59:00 ity of [facility] 2019-07-26 2019-07-26 [facility] Anju Rasmussen [facility] 1.2.840.114 [id number] Univers 08:00:00 23:59:00 Encounter [place] 350.1.13.10 [place] [phone] [facility] [address] 2019-07-05 2019-07-05 Telephone Anju Rasmussen 1.2.840.114 [id number] Univers 00:00:00 00:00:00 [facility] 350.1.13.10 it [place] [id number] [address] 2019-06-30 2019-06-30 Office Care, Ang Primary [place] 1.2.840 .114 [id number] Univers 09:30:52 10:39:08 Visit Anju Rasmussen [facility] 350.1.13.10 [place] [phone] [address] 2019-06-30 2019-06-30 Orders Doctor MARIA ISABEL 1.2.840.114 [id number] Univers 00:00:00 00:00:00 Only Unassigned, MIKE 350.1.13.10 ity of [place] [facility] 4.2.7.2.686 Dmitri as [phone] [address] 2019-01-27 2019-02-04 Office Care, Ang Primary [place] 1.2.840 .114 [id number] Univers 08:32:06 08:24:36 Visit Anju Rasmussen [facility] 350.1.13.10 [place] [id number] [address] 2019-02-03 2019-02-03 Orders Doctor MARIA ISABEL 1.2.840.114 [id number] Univers 00:00:00 00:00:00 Only Unassigned, MIKE 350.1.13.10 ity of [place] [facility] 4.2.7.2.686 Dmitri as [phone] [address] 2019-02-02 2019-02-02 Office Radha, [facility] 1.2.840.114 [id number] Univers 13:41:41 14:12:50 Visit Singh Regan 350.1.13.10 it[place] [phone] Ct dical [facility] 059 [facility] 2019-02-02 2019-02-02 Telephone Anju Rasmussen [facility] 1.2.840.114 [id number] Univers 00:00:00 00:00:00 E Health 350.1.13.10 it y of [place] - [phone] [facility] [address] 2019-01-27 2019-01-27 Orders Doctor MARIA ISABEL 1.2.840.114 [id number] 00:00:00 00:00:00 Only Unassigned, MIKE 350.1.13.10 ity of [place] [facility] 4.2.7.2.686 Dmitri as [phone] [facility] 009 Branch Results Test Description Test Time Test Comments Results Result Comments Source COMPREHENSIVE METABOLIC PANEL 2021-09-26 05:07:05 Test Item Value Reference Range Interpretation Comme nts GLUCOSE (test code = 2217) 101 MG/DL 70-99 H BUN (test code = 2208) 11 MG/DL 6-20 CREATININE (test code = 0.69 MG/DL 0.80-1.40 L 2213) eGFR (2020 CKD-EPI) (test 107 ML/MIN/1.73 >60 code = 97595) CALC BUN/CREAT (test code = 16 RATIO 6-28 2234) SODIUM (test code = 2231) 142 MEQ/L 133-146 POTASSIUM (test code = 2228) 4.6 MEQ/L 3.5-5.4 CHLORIDE (test code = 2215) 103 MEQ/L 95-107 CARBON DIOXIDE (test code = 25 MEQ/L -31 2205) CALCIUM (test code = 2209) 9.5 MG/DL 8.5-10.5 PROTEIN, TOTAL (test code = 6.8 G/DL 6.1-8.3 2228) ALBUMIN (test code = 2201) 4.4 G/DL 3.5-5.2 CALC GLOBULIN (test code = 2.4 G/DL 1.9-3.7 2239) CALC A/G RATIO (test code = 1.8 RATIO 1.0-2.6 2233) BILIRUBIN, TOTAL (test code 0.5 MG/DL See_Comment [Automated message] The = 2206) system which ge nerated this result transmit lor reference range : <=1.2. The reference range was not used to interpr et this result as nancy l/abnormal. ALKALINE PHOSPHATASE (test 73 U/L 40-123 code = 2204) AST (test code = 2218) 64 U/L 9-50 H ALT (test code = 2219) 67 U/L 5-50 H LIPID [id number] 05:07:05 Test Item Value Reference Range Interpretation Comments CHOLESTEROL (test 174 MG/DL <200 code = 2210) TRIGLYCERIDES (test 34 MG/DL <150 code = 2232) HDL CHOLESTEROL (test 93 MG/DL >39 code = 2220) CALC LDL CHOL (test 71 MG/DL <100 NOTE: C ALCULATED LDL code = 2237) IS BASED ON CORINNE-STEELE METHOD WHICHINCLUDES ADJUSTABLE TRIGLYCERIDE:VL DL CHOLESTEROL RAT IO.THIS FACTOR VARIES B Y MEASURED TRIGLY CERIDE AND NON-HDLCHOL ESTEROL CONCENTRATIONS WITH INCREASED CALCU LATED LDL SEENIN HIGH ER TRIGLYCERIDE OR LOWER NON-HDL SPECIME NS. FOR MOREINFORMATION , SEE CLIENT ANNOUNCE MENT AT [email or web address] [email or web address] LDL/HDL 0.76 RATIO <3.55 (test code = 2238) CBC W/AUTO DIFF WITH [id number] 04:08:33 Test Item Value Reference Range Interpretation Comments WBC (test code = 5.4 K/UL 3.5-11.0 1001) RBC (test code = 4.39 M/UL 4.50-6.10 L 1002) HEMOGLOBIN (test 16.3 G/DL 13.5-17.0 code = 1003) HEMATOCRIT (test 43.9 % 40.0-51.0 code = 1004) MCV (test code = 100.0 fL 80.0-99.0 H 1005) MCH (test code = 37.1 PG 25.0-33.0 H 1006) MCHC (test code = 37.1 G/DL 31.0-36.0 H 1007) RDW (test code = 13.2 % 11.5-15.0 1038) NEUTROPHILS (test 57.4 % code = 1008) LYMPHOCYTES (test 25.3 % code = 1010) MONOCYTES (test code 11.5 % = 1011) EOSINOPHILS (test 4.1 % code = 1012) BASOPHILS (test code 1.1 % = 1013) IMMATURE 0.6 % GRANULOCYTES (test code = 1036) NUCLEATED RBCS (test 0.0 /100 See_Comment [Autom ated message] code = 1065) WBC'S The system [employer] generated this result transmitted ref erence range: 0.0. The reference range was not used to int erpret this result as normal/abnormal . PLATELET COUNT (test 177 K/UL 130-400 code = 1015) ABSOLUTE NEUTROPHILS 3.09 K/UL 1.50-7.50 (test code = 1066) ABSOLUTE LYMPHOCYTES 1.36 K/UL 1.00-4.00 (test code = 1067) ABSOLUTE MONOCYTES 0.62 K/UL 0.20-1.00 (test code = 1068) ABSOLUTE EOSINOPHILS 0.22 K/UL 0.00-0.50 (test code = 1040) ABSOLUTE BASOPHILS 0.06 K/UL 0.00-0.20 (test code = 1069) ABS IMMATURE 0.03 K/UL 0.00-0.10 GRANULOCYTES (test code = 1020) ABS NUCLEATED RBCS 0.00 K/UL 0.00-0.11 UNLESS O THERWISE (test code = 06597) INDICATE D, ALL TESTING PERFORM ED [facility], I [place]. [address] [place] [id number] [place] [address] DIRECTOR: KARELY KAUR M.D. CLIA NUMBER [id number] CAP ACCREDITATION N O. [id number] COMPREHENSIVE METABOLIC PANEL [ADDED]2021-09-26 00:00:00 Test Item Value Reference Range Interpretation Comments GLUCOSE (test code = 2217) 101 MG/DL BUN (test code = 2208) 11 MG/DL CREATININE (test code = 2214) 0.69 MG/DL eGFR (2020 CKD-EPI) (test 107 ML/MIN/1.73 code = 59599) CALC BUN/CREAT (test code = 16 RATIO 2235) SODIUM (test code = 2231) 142 MEQ/L POTASSIUM (test code = 2228) 4.6 MEQ/L CHLORIDE (test code = 2215) 103 MEQ/L CARBON DIOXIDE (test code = 25 MEQ/L 2205) CALCIUM (test code = 2209) 9.5 MG/DL PROTEIN, TOTAL (test code = 6.8 G/DL 2228) ALBUMIN (test code = 2201) 4.4 G/DL CALC GLOBULIN (test code = 2.4 G/DL 2239) CALC A/G RATIO (test code = 1.8 RATIO 2234) BILIRUBIN, TOTAL (test code = 0.5 MG/DL 2206) ALKALINE PHOSPHATASE (test 73 U/L code = 2204) AST (test code = 2218) 64 U/L ALT (test code = 2219) 67 U/L COMPREHENSIVE METABOLIC PANEL [ADDED]2021-09-26 00:00:00 Test Item Value Reference Range Interpretation Comments GLUCOSE (test code = 2217) 101 MG/DL BUN (test code = 2208) 11 MG/DL CREATININE (test code = 2214) 0.69 MG/DL eGFR (2020 CKD-EPI) (test 107 ML/MIN/1.73 code = 37495) CALC BUN/CREAT (test code = 16 RATIO 2235) SODIUM (test code = 2231) 142 MEQ/L POTASSIUM (test code = 2228) 4.6 MEQ/L CHLORIDE (test code = 2215) 103 MEQ/L CARBON DIOXIDE (test code = 25 MEQ/L 2205) CALCIUM (test code = 2209) 9.5 MG/DL PROTEIN, TOTAL (test code = 6.8 G/DL 2228) ALBUMIN (test code = 2201) 4.4 G/DL CALC GLOBULIN (test code = 2.4 G/DL 0) CALC A/G RATIO (test code = 1.8 RATIO 2234) BILIRUBIN, TOTAL (test code = 0.5 MG/DL 2206) ALKALINE PHOSPHATASE (test 73 U/L code = 2204) AST (test code = 2218) 64 U/L ALT (test code = 2219) 67 U/L LIPID PANEL [ADDED]2021-09-26 00:00:00 Test Item Value Reference Range Interpretation Comments CHOLESTEROL (test code = 2210) 174 MG/DL TRIGLYCERIDES (test code = 2232) 34 MG/DL HDL CHOLESTEROL (test code = 2220) 93 MG/DL CALC LDL CHOL (test code = 2237) 71 MG/DL RISK RATIO LDL/HDL (test code = 0.76 RATIO 2238) LIPID PANEL [ADDED]2021-09-26 00:00:00 Test Item Value Reference Range Interpretation Comments CHOLESTEROL (test code = 2210) 174 MG/DL TRIGLYCERIDES (test code = 2232) 34 MG/DL HDL CHOLESTEROL (test code = 2220) 93 MG/DL CALC LDL CHOL (test code = 2237) 71 MG/DL RISK RATIO LDL/HDL (test code = 0.76 RATIO 2238) CBC W/AUTO DIFF WITH PLATELETS [ADDED]2021-09-26 00:00:00 Test Item Value Reference Range Interpretation Comments WBC (test code = 1001) 5.4 K/UL RBC (test code = 1002) 4.39 M/UL HEMOGLOBIN (test code = 1003) 16.3 G/DL HEMATOCRIT (test code = 1004) 43.9 % MCV (test code = 1005) 100.0 fL MCH (test code = 1006) 37.1 PG MCHC (test code = 1007) 37.1 G/DL RDW (test code = 1038) 13.2 % NEUTROPHILS (test code = 1008) 57.4 % LYMPHOCYTES (test code = 1010) 25.3 % MONOCYTES (test code = 1011) 11.5 % EOSINOPHILS (test code = 1012) 4.1 % BASOPHILS (test code = 1013) 1.1 % IMMATURE GRANULOCYTES (test 0.6 % code = 1036) NUCLEATED RBCS (test code = 0.0 /100WBC'S 1065) PLATELET COUNT (test code = 177 K/UL 1015) ABSOLUTE NEUTROPHILS (test code 3.09 K/UL = 1066) ABSOLUTE LYMPHOCYTES (test code 1.36 K/UL = 1067) ABSOLUTE MONOCYTES (test code = 0.62 K/UL 1068) ABSOLUTE EOSINOPHILS (test code 0.22 K/UL = 1040) ABSOLUTE BASOPHILS (test code = 0.06 K/UL 1069) ABS IMMATURE GRANULOCYTES (test 0.03 K/UL code = 1020) ABS NUCLEATED RBCS (test code = 0.00 K/UL 50557) CBC W/AUTO DIFF WITH PLATELETS [ADDED]2021-09-26 00:00:00 Test Item Value Reference Range Interpretation Comments WBC (test code = 1001) 5.4 K/UL RBC (test code = 1002) 4.39 M/UL HEMOGLOBIN (test code = 1003) 16.3 G/DL HEMATOCRIT (test code = 1004) 43.9 % MCV (test code = 1005) 100.0 fL MCH (test code = 1006) 37.1 PG MCHC (test code = 1007) 37.1 G/DL RDW (test code = 1038) 13.2 % NEUTROPHILS (test code = 1008) 57.4 % LYMPHOCYTES (test code = 1010) 25.3 % MONOCYTES (test code = 1011) 11.5 % EOSINOPHILS (test code = 1012) 4.1 % BASOPHILS (test code = 1013) 1.1 % IMMATURE GRANULOCYTES (test 0.6 % code = 1036) NUCLEATED RBCS (test code = 0.0 /100WBC'S 1065) PLATELET COUNT (test code = 177 K/UL 1015) ABSOLUTE NEUTROPHILS (test code 3.09 K/UL = 1066) ABSOLUTE LYMPHOCYTES (test code 1.36 K/UL = 1067) ABSOLUTE MONOCYTES (test code = 0.62 K/UL 1068) ABSOLUTE EOSINOPHILS (test code 0.22 K/UL = 1040) ABSOLUTE BASOPHILS (test code = 0.06 K/UL 1069) ABS IMMATURE GRANULOCYTES (test 0.03 K/UL code = 1020) ABS NUCLEATED RBCS (test code = 0.00 K/UL 27279) CBC W/AUTO DIFF WITH PLATELETS [ADDED]2021-09-26 00:00:00 Test Item Value Reference Range Interpretation Comments WBC (test code = 1001) 5.4 K/UL RBC (test code = 1002) 4.39 M/UL HEMOGLOBIN (test code = 1003) 16.3 G/DL HEMATOCRIT (test code = 1004) 43.9 % MCV (test code = 1005) 100.0 fL MCH (test code = 1006) 37.1 PG MCHC (test code = 1007) 37.1 G/DL RDW (test code = 1038) 13.2 % NEUTROPHILS (test code = 1008) 57.4 % LYMPHOCYTES (test code = 1010) 25.3 % MONOCYTES (test code = 1011) 11.5 % EOSINOPHILS (test code = 1012) 4.1 % BASOPHILS (test code = 1013) 1.1 % IMMATURE GRANULOCYTES (test 0.6 % code = 1036) NUCLEATED RBCS (test code = 0.0 /100WBC'S 1065) PLATELET COUNT (test code = 177 K/UL 1015) ABSOLUTE NEUTROPHILS (test code 3.09 K/UL = 1066) ABSOLUTE LYMPHOCYTES (test code 1.36 K/UL = 1067) ABSOLUTE MONOCYTES (test code = 0.62 K/UL 1068) ABSOLUTE EOSINOPHILS (test code 0.22 K/UL = 1040) ABSOLUTE BASOPHILS (test code = 0.06 K/UL 1069) ABS IMMATURE GRANULOCYTES (test 0.03 K/UL code = 1020) ABS NUCLEATED RBCS (test code = 0.00 K/UL 20102) CT LUNG CANCER [id number] 14:39:09 1. No noncalcified lung nodules are identified. Pulmonary fibrosis in rightupper lobe, multiple size of groundglass haziness in both lungs, uncertainetiology. Differential diagnosis includes nonspecific viralinfection/reactive airway disease. Please correlate clinically. Lung RADS Category 1-S. Recommendation: Continue with annual screening Bubba Rosales, CIPRIANO Blanchard,JOHANA Badillo, et al. Guidelines for Management ofIncidental Pulmonary Nodules Detected on CT Images: From the [facility] 2017. Radiology. DOI: http://dx.doi.org/10.1148/[email or web address]://pubs.r sna.org/doi/abs/10.1148/[email or web address] schematic: http://bit.ly/2sikjMt Category 1 ?Negative screen ? no nodules and/or definitely benign nodules ?continue annual screening in 12 months ?S modifier ? ? Other clinically significant or potentially significantfindings PROCEDURE: CT CHEST NON CONTRAST ? LUNG CANCER SCREENING. CLINICAL INDICATION: Lung cancer screen, asymptomatic, current smoker (min.30 pack-yrs) COMPARISON: None. TECHNIQUE: Low dose helical CT was acquired from lung apices to bases wasobtained and reconstructed at 1 mm, without intravenous contrast. MIP andcoronal & sagittal MPR images were generated and reviewed. (DFOV = 32.5cm) FINDINGS: Lower neck/thyroid: Unremarkable. Lungs: Abnormal findings in the right upper lobe consistent with chronicpulmonary fibrosis creatingstellate-shaped irregular density. Peripheral posterior right upper lobe showed diffuse congestion withoutfocal nodularity. Additional sites of groundglass haziness seen involving portions of theright m iddle lobe, left upper lobe, left lingula and anterior basal segmentof right lower lobe. Calcified granuloma noted in the posterior right upper lobe (188/2). Central airway: Unremarkable. Pleura: No pleural effusion, thickening or pneumothorax. Thoracic aorta and great vessels: Classic arch anatomy. Normal in diameter.Mild atherosclerotic disease affects the visualized aorta. Pulmonary arteries: Unremarkable. Heart and pericardium: Advanced triple vessel coronary atherosclerosis.Unremarkable cardiacmorphology and pericardium. Lymph nodes: No enlarged thoracic lymph nodes. Mediastinum: Unremarkable. Thoracic spine and chest wall: No aggressive lesions. Mild generalizeddegenerative spondylotic changes in lower cervical and thoracic spines.Prominent Schmorl's nodes noted in some of the middle and lower thoracicvertebral endplates secondary to remote axial loading trauma. Other Lines/Tubes/Devices/Hardware: None Visualized upper abdomen: Unremarkable. [facility], Radiant Results Inft User - 07/26/2019 8:40 AM CSTPROCEDURE: CT CHEST NON CONTRAST ? LUNG CANCER SCREENING.CLINICAL INDICATION: Lung cancer screen, asymptomatic, current smoker (min.30 pack-yrs) COMPARISON: None.TECHNIQUE: Low dose helical CT was acquired from lung apices to bases wasobtained and reconstructed at 1 mm, without intravenous contrast. MIP andcoronal & sagittal MPR images were generated and reviewed. (DFOV = 32.5cm)FINDINGS:Lower neck/thyroid: Unremarkable.Lungs: Abnormal findings in the right upper lobe consistent with chronicpulmonary fibrosis creating stellate-shaped irregular density. Peripheral posterior right upper lobe showed diffuse congestion withoutfocal nodularity. Additional sites of groundglass haziness seen involving portions of theright middle lobe, left upper lobe, left lingula and anterior basal segmentof right lower lobe.Calcified granuloma noted in the posterior right upper lobe (188/2).Central airway: Unremarkable.Pleura: No pleural effusion, thickening or pneumothorax.Thoracic aorta and great vessels: Classic arch anatomy. Normal in diameter.Mild atherosclerotic disease affects the visualized aorta.Pulmonary arteries: Unremarkable.Heart and pericardium: Advanced triple vessel coronary atherosclerosis.Unremarkable cardiac morphology and pericardium.Lymph nodes: No enlarged thoracic lymph nodes.Mediastinum: Unremarkable.Thoracic spine and chest wall: No aggressive lesions. Mild generalizeddegenerative spondylotic changes in lower cervical and thoracic spines.Prominent Schmorl's nodes noted in some of the middle and lower thoracicvertebral endplates secondary to remote axial loading trauma.Other Lines/Tubes/Devices/Hardware: NoneVisualized upper abdomen: Unremarkable. IMPRESSION1. No noncalcified lung nodules are identified. Pulmonary fibrosis in rightupper lobe, multiple size of groundglass haziness in both lungs, uncertainetiology. Differential diagnosis includes nonspecific viralinfection/reactive airway disease. Please correlate clinically.Lung RADS Category 1-S. Recommendation: Continue with annual screening Bubba Rosales, CIPRIANO Blanchard, JOHANA Badillo, et al. Guidelines for Management ofIncidental Pulmonary Nodules Detected on CT Images: From the [facility] 2017. Radiology. DOI: http://dx.doi.o rg/10.1148/[email or web address]://pubs.rsna.org/doi/abs/10.1148/radiol.[email or web address] 59Visual schematic: http://bit.ly/2sikjMtCategory 1 Negative screen ? no nodules and/or definitely benign nodules ?continue annual screening in 12 months S modifier ? Other clinically significant or potentially significantfindings [facility]
[2022-11-10] MEDS ORDERED: ONDANSETRON 4 MG/2 ML VIAL ONE (09:32)
[2022-11-10] MEDS ORDERED: MORPHINE 4 MG/ML SYR ONE ×2 (09:32→12:17)
[2022-11-10 09:36] LABS: Absolute Lymphocytes (CBC) 1.4 K/uL (0.7-4.9); Hematocrit 41.8 % (39.6-49.0); Lymphocytes % 15.3 % (15.3-44.8); MCV 100.1 fL (80-100); MPV 7.8 fL (7.6-11.3); RBC Red Blood Cell Count 4.18 M/uL (4.33-5.43)
[2022-11-10 09:48] LABS: Protime INR 0.91
[2022-11-10 09:57] LABS: Magnesium 1.9 mg/dL (1.6-2.4); Potassium 4.2 mEq/L (3.5-5.1); Troponin High Sensitivity 7.1 pg/mL (<58.9)
--- NOTE | 2022-11-10 09:57 | RAD REPORT ---
EXAM DESCRIPTION: CT - Head C Spine Mpr Wo Con - 11/10/2022 9:37 am CLINICAL HISTORY: Right arm weakness/numbness. Head and neck pain COMPARISON: None. TECHNIQUE: Computed axial tomography of the head and cervical spine was obtained. Sagittal and coronal reconstruction was performed. All CT scans are performed using dose optimization technique as appropriate and may include automated exposure control or mA/KV adjustment according to patient size. FINDINGS: An intracranial bleed is not seen. The ventricles are normal in caliber. No significant hypodensity within the brain. An extra-axial fluid collection is not noted. Fluid within the visualized sinuses and mastoids is not seen A cervical fracture is not visualized. No dislocation is noted. Mild anterior subluxation C2 on C3. Slight posterior subluxation C3 on C4. Right posterior-lateral disc osteophyte complex C3-4 results in moderate to marked narrowing the righ t neural foramina Disc bulge and osteophytes at C4-5 result in marked narrowing of the right and moderate to marked mary rowing left neural foramina Disc bulge and osteophytes C5-6 result in marked bilateral narrowing of the neural foramina bilateral ly. Mild narrowing of the thecal sac Disc bulge and osteophytes C6-7 results in moderate to marked narrowing of the neural foramina bilate rally. Mild to moderate narrowing the thecal sac IMPRESSION: No acute intracranial abnormality is seen. A cervical fracture is not visualized. Predominantly spondylosis mid and distal cervical spine resulting in multi level [id number] b ilateral foraminal stenosis. Nonemergent MRI recommended
--- NOTE | 2022-11-10 10:04 | RAD REPORT ---
EXAM DESCRIPTION: CTSpine Lumbar Wo Con11/10/2022 9:40 am CLINICAL HISTORY: Right leg weakness and numbness COMPARISON: None TECHNIQUE: Computed axial tomography lumbar spine was obtained with coronal and sagittal reconstruct ion. All CT scans are performed using dose optimization technique as appropriate and may include automated exposure control or mA/KV adjustment according to patient size. FINDINGS: No fracture is seen. No dislocation Mild spondylosis L1-2. Small left lateral disc herniation Disc bulge, vacuum phenomena, osteophytes, subchondral sclerosis L2-3. Mild to moderate central spina l stenosis Disc bulge, osteophytes, ligamentum flavum and facet hypertrophy L3-4. Thecal sac measures 6 millimet ers. Moderate narrowing left neural foramina Disc bulge, osteophytes, ligamentum flavum and facet hypertrophy L4-5. Thecal sac measures 6 millimet ers. Moderate to marked narrowing of the right and moderate narrowing left neural foramina Vacuum phenomena, disc bulge, subchondral sclerosis and osteophytes L5-S1. Mild narrowing of the thec al sac. Moderate narrowing of the neural foramina IMPRESSION: Negative for a lumbar fracture. Spondylosis most marked at L3-4 and L4-5 resulting in moderate central spinal stenosis. Nonemergent MRI recommended
[2022-11-10] MEDS ORDERED: dexAMETHasone 10 MG/ML VIAL ONE (10:20)
--- NOTE | 2022-11-10 11:11 | ER ---
Nurse's Notes [facility] Name: Rd Rodriguez Age: 62 yrs Sex: Male : 1960 Arrival Date: 11/10/2022 Time: 08:56 Bed 16 Private MD: Diagnosis: Cervical disc disorder with radiculopathy;Intervertebral disc disorders with radiculopathy, lumbar region;Paresthesia of skin Presentation: 11/10 09:03 Chief complaint: EMS states: toned out for chronic neck pain. pt reports being seen in ld1 [place] this week - "pain medications are not working.". Coronavirus screen: At this time, the client does not indicate any symptoms associated with coronavirus-19. Ebola Screen: No symptoms or risks identified at this time. Initial Sepsis Screen: Does the patient meet any 2 criteria? No. Patient's initial sepsis screen is negative. Does the patient have a suspected source of infection? No. Patient's initial sepsis screen is negative. Risk Assessment: Do you want to hurt yourself or someone else? Patient reports no desire to harm self or others. Onset of symptoms was November 10, 2022. 09:03 Method Of Arrival: [facility] 09:03 Acuity: JERICA 3 ld1 Triage Assessment: 09:04 General: Appears in no apparent distress. comfortable, Behavior is calm, cooperative, ld1 appropriate for age. Pain: Complains of pain in neck Pain currently is 10 out of 10 on a pain scale. Quality of pain is described as throbbing. EENT: No signs and/or symptoms were reported regarding the EENT system. Neuro: Level of Consciousness is awake, alert, obeys commands, Oriented to person, place, time, situation. Cardiovascular: Capillary refill < 3 seconds Patient's skin is warm and dry. Respiratory: Airway is patent Respiratory effort is even, unlabored. GI: Abdomen is flat, non-distended. : No signs and/or symptoms were reported regarding the genitourinary system. Derm: No signs and/or symptoms reported regarding the dermatologic system. Musculoskeletal: No signs and/or symptoms reported regarding the musculoskeletal system. Historical: - Allergies: 09:04 No Known Allergies; ld1 - PMHx: 09:04 Hypertension; ld1 - PSHx: 09:04 Appendectomy; ld1 - Immunization history:: Adult Immunizations up to date, Client reports receiving the 2nd dose of the Covid vaccine. - Social history:: Smoking status: Patient denies any tobacco usage or history of. Patient/guardian denies using alcohol. - Family history:: not pertinent. - Hospitalizations: : No recent hospitalization is reported. Screenin:19 Abuse screen: Denies threats or abuse. Nutritional screening: No deficits noted. ap3 Tuberculosis screening: No symptoms or risk factors identified. 13:24 [facility] ED Fall Risk Assessment (Adult) History of falling in the last 3 months, ap3 including since admission Yes- fall prone (multiple falls) (3 pts) Confusion or Disorientation No (0 pts) Intoxicated or Sedated No (0 pts) Impaired Gait Yes (1 pt) Mobility Assist Device Used Yes (1 pt) Altered Elimination Yes (1 pt) Score/Fall Risk Level 3 or more points = High Risk. Assessment: 09:32 General: Appears uncomfortable, Behavior is calm, cooperative. Pain: Complains of pain ap3 in neck and right arm. Neuro: Level of Consciousness is awake, alert, obeys commands, Weakness Paralysis in right arm(s). Cardiovascular: Patient's skin is warm and dry. Respiratory: Airway is patent Respiratory effort is even, unlabored, Respiratory pattern is regular, symmetrical. 10:52 Reassessment: Patient and/or family updated on plan of care and expected duration. Pain ap3 level reassessed. Patient is alert, oriented x 3, equal unlabored respirations, skin warm/dry/pink. 12:09 Reassessment: Discharge pending on pts ride home. Spoke to pts girlfriend, Preeti mb9 , about finding ride home. 12:31 Reassessment: Spoke to pts girlfriend on telephone, states "his brother is out of town mb9 and no one is answering their phone. I don't know how to drive and we have no one to pick him up.". 13:39 Reassessment: No changes from previously documented assessment. Patient and/or family mb9 updated on plan of care and expected duration. Pain level reassessed. Patient is alert, oriented x 3, equal unlabored respirations, skin warm/dry/pink. Patient states feeling better. Patient states symptoms have improved. Vital Signs: 09:03 BP 149 / 85; Pulse 60; Resp 18; Temp 98.1(TE); Pulse Ox 99% on R/A; Pain 10/10; ld1 10:25 BP 147 / 85; Pulse 55; Pulse Ox 98% ; ap3 12:10 BP 175 / 85; Pulse 78; Resp 18; Pulse Ox 99% on R/A; mb9 09:03 Pain Scale: Adult ld1 ED Course: 09:02 Patient arrived in ED. ld1 09:04 Triage completed. ld1 09:04 Arm band placed on right wrist. ld1 09:07 Arie Willis MD is Attending Physician. rn 09:07 Maintain EMS IV. Dressing intact. Good blood return noted. Site clean \\T\\ dry. Gauge \\T\\ ld 1 site: 20G RAC. 09:13 Smiley Hernandez, RN is Primary Nurse. ap3 09:33 Patient has correct armband on for positive identification. Bed in low position. Call ap3 light in reach. Side rails up X2. library monitor on. Pulse ox on. NIBP on. Door closed. Noise minimized. 09:39 CT Head C Spine In Process Unspecified. EDMS 09:40 CT Lumbar Spine Wo Con In Process Unspecified. EDMS 13:24 No provider procedures requiring assistance completed. IV discontinued, intact, ap3 bleeding controlled, No redness/swelling at site. Pressure dressing applied. Administered Medications: 09:33 Drug: morphine IVP or IV 4 mg Route: IVP; Infused Over: 4 mins; Site: right antecubital;ap3 10:24 Follow up: Response: No adverse reaction; Pain is decreased ap3 09:33 Drug: Ondansetron IVP 4 mg Route: IVP; Site: right antecubital; ap3 10:24 Follow up: Response: No adverse reaction ap3 10:20 Drug: Decadron - Dexamethasone IVP 10 mg Route: IVP; Site: right antecubital; ap3 10:46 Follow up: Response: No adverse reaction ap3 12:14 Drug: morphine IVP or IV 4 mg Route: IVP; Infused Over: 4 mins; Site: right antecubital;mb9 12:32 Follow up: Response: No adverse reaction mb9 Medication: 13:24 VIS not applicable for this client. ap3 Outcome: 11:11 Discharge ordered by . rn 13:24 Discharged to home via wheelchair. ap3 13:24 Condition: good 13:24 Discharge instructions given to patient, family, Instructed on discharge instructions, follow up and referral plans. medication usage, Demonstrated understanding of instructions, follow-up care, medications, Prescriptions given X 3. 13:40 Patient left the ED. mb9 Signatures: Dispatcher [employer] EDMS Arie Willis MD MD rn Prokisch, Amanda, RN RN ap3 Shanice Frias RN RN ld1 Clarita Miguel RN RN mb9
--- NOTE | 2022-11-10 11:11 | EDPHYS ---
Physician Documentation [facility] Name: Rd Rodriguez Age: 62 yrs Sex: Male : 1960 Arrival Date: 11/10/2022 Time: 08:56 Bed 16 Private MD: ED Physician Arie Willis HPI: 11/10 09:18 This 62 yrs old Male presents to ER via EMS with complaints of Neck Pain, <24hrs Old, rn weakness. 09:18 The patient or guardian complains of pain. The symptoms are located at the C5 and C6. rn Onset: The symptoms/episode began/occurred 2 week(s) ago. Associated signs and symptoms: Pertinent positives: numbness, Paresthesias tingling, weakness, Pertinent negatives: fever, headache, bladder incontinence, bowel incontinence. The pain radiates to the right arm. Modifying factors: The symptoms are alleviated by nothing. the symptoms are aggravated by movement. Severity of symptoms: At their worst the symptoms were moderate, in the emergency department the symptoms are unchanged. The patient has not experienced similar symptoms in the past. The patient has been recently seen by a physician:. Pt reports neck pain and low back pain, began 2 weeks ago, has visited [facility] ER twice for this and discharged with diagnosis of radiculopathy. Pt reports pain not improving and weakness of right arm and leg is getting worse. No trauma. Has never had this before. Reports had ct head and neck at [facility] that was neg. . Historical: - Allergies: 09:04 No Known Allergies; ld1 - PMHx: 09:04 Hypertension; ld1 - PSHx: 09:04 Appendectomy; ld1 - Immunization history:: Adult Immunizations up to date, Client reports receiving the 2nd dose of the Covid vaccine. - Social history:: Smoking status: Patient denies any tobacco usage or history of. Patient/guardian denies using alcohol. - Family history:: not pertinent. - Hospitalizations: : No recent hospitalization is reported. ROS: 09:18 Constitutional: Negative for fever, chills, and weight loss, Neck: + neck pain rn social services: Negative for chest pain, palpitations, and edema, Respiratory: Negative for shortness of breath, cough, wheezing, and pleuritic chest pain, Abdomen/GI: Negative for abdominal pain, nausea, vomiting, diarrhea, and constipation, Back: Negative for injury and pain, MS/Extremity: Negative for injury and deformity, Skin: Negative for injury, rash, and discoloration, Neuro: Negative for seizure, + numbness and weakness RUE/RLE Exam: 09:18 Constitutional: This is a well developed, well nourished patient who is awake, alert, rn appears uncomfortable Head/Face: Normocephalic, atraumatic. Neck: + mild tenderness left pericervical region near c5/c6. Cardiovascular: Regular rate and rhythm. No pulse deficits. Respiratory: No increased work of breathing, no retractions or nasal flaring. Abdomen/GI: soft, non-tender Skin: Warm, dry MS/ Extremity: Pulses equal, no cyanosis. Neuro: Awake and alert, GCS 15, oriented to person, place, time, and situation. Cranial nerves II-XII grossly intact. Motor strength 3/5 RUE, 4/5 RLE, 4+/5 LUE/LLE. Decreased sensation RUE/RLE. Vital Signs: 09:03 BP 149 / 85; Pulse 60; Resp 18; Temp 98.1(TE); Pulse Ox 99% on R/A; Pain 10/10; ld1 10:25 BP 147 / 85; Pulse 55; Pulse Ox 98% ; ap3 12:10 BP 175 / 85; Pulse 78; Resp 18; Pulse Ox 99% on R/A; mb9 09:03 Pain Scale: Adult ld1 MDM: 09:07 Patient medically screened. rn 11:07 Differential diagnosis: arthritis, Cervical Disc Herniation Cervical Discogenic Pain rn Cervical Facet Syndrome Cervical Raiculopathy Cervical Spondylosis cervical strain, Spondylolisthesis Spondylosis subluxation, torticollis. Data reviewed: vital signs, nurses notes, lab test result(s), radiologic studies, CT scan, and as a result, I will admit patient. Consideration of Admission/Observation Escalation of care including admission/observation considered. Counseling: I had a detailed discussion with the patient and/or guardian regarding: the historical points, exam findings, and any diagnostic results supporting the discharge/admit diagnosis, lab results, radiology results, the need to transfer to another facility. Response to treatment: the patient's symptoms have mildly improved after treatment, and as a result, I will admit patient. ED course: Recommended transfer for MRI and spinal consultation, given weakness, patient decided he does not want to be transferred because he is worried about getting stuck up in [place]. Discussed reason for transfer as well as risks/benefits, patient understands, and wants to be discharged home. Return precautions given and understood. . 11:59 ED course: Went to room again to convince patient to be transferred, still does not rn want to be transferred, compromise was that he wants to go home now, will try to get f/u, if unable to will return in next few days for MRI here since no MRI available due to holiday scheduling today.. 11/10 09:16 Order name: Basic Metabolic Panel; Complete Time: :59 rn 11/10 09:16 Order name: CBC with Diff; Complete Time: rn 11/10 09:16 Order name: High Sensitivity Troponin; Complete Time: rn 11/10 09:16 Order name: Magnesium; Complete Time: rn 11/10 09:16 Order name: Protime (+inr); Complete Time: rn 11/10 09:16 Order name: Ptt, Activated; Complete Time: rn 11/10 10:07 Order name: Glucose, Ancillary Testing; Complete Time: 10:09 EDGA 11/10 09:16 Order name: CT Head C Spine; Complete Time: : rn 11/10 09:16 Order name: CT Lumbar Spine Wo Con; Complete Time: 10:09 rn 11/10 09:16 Order name: EKG; Complete Time: 09:17 rn 11/10 09:16 Order name: Accucheck; Complete Time: :58 rn 11/10 09:16 Order name: Cardiac monitoring; Complete Time: :34 rn 11/10 09:16 Order name: EKG - Nurse/Tech; Complete Time: :58 11/10 09:16 Order name: IV Saline Lock; Complete Time: :11/10 09:16 Order name: Labs collected and sent; Complete Time: : rn 11/10 09:16 Order name: O2 Per Protocol; Complete Time: : rn 11/10 09:16 Order name: O2 Sat Monitoring; Complete Time: :11/10 09:16 Order name: Stroke Swallow Screen; Complete Time: 10:45 rn Administered Medications: 09:33 Drug: morphine IVP or IV 4 mg Route: IVP; Infused Over: 4 mins; Site: right antecubital;ap3 10:24 Follow up: Response: No adverse reaction; Pain is decreased ap3 09:33 Drug: Ondansetron IVP 4 mg Route: IVP; Site: right antecubital; ap3 10:24 Follow up: Response: No adverse reaction ap3 10:20 Drug: Decadron - Dexamethasone IVP 10 mg Route: IVP; Site: right antecubital; ap3 10:46 Follow up: Response: No adverse reaction ap3 12:14 Drug: morphine IVP or IV 4 mg Route: IVP; Infused Over: 4 mins; Site: right antecubital;mb9 12:32 Follow up: Response: No adverse reaction mb9 Disposition Summary: 11/10/22 11:11 Discharge Ordered Location: Home rn Problem: an ongoing problem rn Symptoms: have improved rn Condition: Stable rn Diagnosis - Cervical disc disorder with radiculopathy rn - Intervertebral disc disorders with radiculopathy, lumbar region rn - Paresthesia of skin rn Followup: rn - With: Private Physician - When: As needed - Reason: Recheck today's complaints, Re-evaluation by your physician Discharge Instructions: - Discharge Summary Sheet rn - Cervical Radiculopathy rn - Lumbosacral Radiculopathy rn - Paresthesia rn Forms: - Medication Reconciliation Form rn - Thank You Letter rn - Antibiotic furniture dipper - Prescription Opioid Use rn Prescriptions: - Cyclobenzaprine 10 mg Oral Tablet - take 1 tablet by ORAL route every 8 hours As needed; 12 tablet; Refills: 0, rn Product Selection Permitted - Tramadol 50 mg Oral Tablet - take 1 tablet by ORAL route every 8 hours as needed; 12 tablet; Refills: 0, rn Product Selection Permitted - Medrol (Fadi) 4 mg Oral Tablets, Dose Pack - take 1 tablet by ORAL route as directed - follow package instructions; 1 rn packet; Refills: 0, Product Selection Permitted Signatures: Dispatcher [employer] Arie Álvarez MD MD rn Prokisch, Amanda, RN RN ap3 Shanice Frias RN RN ld1 Clarita Miguel RN RN mb9
[2022-11-10 13:52] VITALS: TEMP 98.1
[2022-11-10 13:56] VITALS: BP 175/85; O2SAT 99
--- NOTE | 2022-11-12 07:12 | EKG ---
Test Date: 2022-11-10 Test Time: 09:48:45 Institutional Asset Manager: ALP MEASUREMENT RESULTS: Intervals: Rate: 56 DC: 138 QRSD: 76 QT: 420 QTc: 405 [place]: P: 68 DC: 138 QRS: -43 T: -3 INTERPRETIVE STATEMENTS: Sinus bradycardia Left axis deviation Nonspecific ST abnormality Abnormal ECG No previous ECG available for comparison Electronically Signed On 11-12-22 07:07:13 CDT by Mata Mukherjee
== END 2022-11-10 13:40 | disposition home or self-care (01) ==
LOC: EDBD → ER 08:56
DX: M50.10 Cervical disc disorder with radiculopathy, unspecified cervical region (principal); M51.16 Intervertebral disc disorders with radiculopathy, lumbar region; R20.2 Paresthesia of skin; I10 Essential (primary) hypertension
CPT/HCPCS: 93005; 85025; 80048; 36415; 83735; 85610; 82947; 85730; 84484; 72131; 70450; 72125; 96375; 96374; 99285; J1100; J2405

== ENCOUNTER 2022-11-13 08:26 | Emergency (ER) | payer OTHER ==
[2022-11-13] MEDS ORDERED: MORPHINE 4 MG/ML SYR ONE (09:32)
[2022-11-13] MEDS ORDERED: ONDANSETRON 4 MG/2 ML VIAL ONE (09:32)
[2022-11-13 09:36] LABS: Absolute Lymphocytes (CBC) 2.8 K/uL (0.7-4.9); MCV 99.7 fL (80-100); MPV 7.5 fL (7.6-11.3); RBC Red Blood Cell Count 4.41 M/uL (4.33-5.43)
[2022-11-13 09:41] LABS: Potassium 3.6 mEq/L (3.5-5.1)
--- NOTE | 2022-11-13 15:15 | RAD REPORT ---
EXAM DESCRIPTION: MRI - Brain Wo Cont - 11/13/2022 2:39 pm CLINICAL HISTORY: weakness, numb COMPARISON: Head and cervical spine CT 11/10/2022 TECHNIQUE: Multiplanar multisequence MRI of the brain performed without IV contrast. FINDINGS: Punctate focus of diffusion restriction is present along the right posterior subinsular re gion, series 6, image 63. Corresponding T2/FLAIR hyperintensity. No evidence of acute intracranial hemorrhage or abnormal extra-axial fluid collections. Ventricular caliber within normal for age. Midline structures are unremarkable. Scattered subcortical and deep white matter T2/FLAIR hyperintensities, nonspecific, but suggestive of chronic small vessel ischemic changes. No mass effect or midline shift. Major vascular flow voids are preserved. Mastoid air cells and paranasal sinuses are clear. IMPRESSION: Punctate focus of diffusion restriction along the posterior right subinsular region, com patible with an acute to subacute small infarcts. No evidence of acute intracranial hemorrhage or mass effect.
--- NOTE | 2022-11-13 16:09 | ER ---
Nurse's Notes [facility] Name: Rd Rodriguez Age: 61 yrs Sex: Male : 1960 Arrival Date: 11/13/2022 Time: 08:26 Bed 16 Private MD: Diagnosis: Weakness;Spinal cord compression;Paresthesia of skin Presentation: 11/13 08:42 Chief complaint: Chief complaint: Patient states: needs an MRI , was seen here this iw weekend , has had sciatic nerve pain then it moved up into his neck and he's been weak on his right side over past 2 weeks , cannot move his right side, and his left side is weak also. 08:46 Coronavirus screen: At this time, the client does not indicate any symptoms associated iw with coronavirus-19. Ebola Screen: Patient negative for fever greater than or equal to 101.5 degrees Fahrenheit, and additional compatible Ebola Virus Disease symptoms Patient denies exposure to infectious person. Patient denies travel to an Ebola-affected area in the 21 days before illness onset. No symptoms or risks identified at this time. Initial Sepsis Screen: Does the patient meet any 2 criteria? No. Patient's initial sepsis screen is negative. Does the patient have a suspected source of infection? No. Patient's initial sepsis screen is negative. Risk Assessment: Do you want to hurt yourself or someone else? Patient reports no desire to harm self or others. 08:46 Method Of Arrival: Wheelchair iw 08:46 Acuity: JERICA 3 iw 09:13 Onset of symptoms was October 27, 2022. iw Triage Assessment: 14:02 General: Appears in no apparent distress. db 19:09 General: Appears Behavior is calm, cooperative. db Historical: - Allergies: 08:48 No Known Allergies; iw - PMHx: 08:48 Hypertension; iw - PSHx: 08:48 Appendectomy; iw - Immunization history:: Adult Immunizations unknown. - Family history:: not pertinent. - Social history:: Smoking status: Patient reports the use of cigarette tobacco products, smokes one pack cigarettes per day. - Hospitalizations: : No recent hospitalization is reported. Screenin:29 [facility] ED Fall Risk Assessment (Adult) History of falling in the last 3 months, db including since admission Yes- fall prone (multiple falls) (3 pts) Confusion or Disorientation No (0 pts) Intoxicated or Sedated No (0 pts) Impaired Gait Yes (1 pt) Mobility Assist Device Used No (0 pt) Altered Elimination No (0 pt) Score/Fall Risk Level 3 or more points = High Risk Oriented to surroundings, Maintained a safe environment, Assessed \T\ reinforced patient's understanding of fall precautions, Hourly rounding (assess needs \T\ fall precautionary measures) done. Abuse screen: Denies threats or abuse. Denies injuries from another. Nutritional screening: No deficits noted. Tuberculosis screening: No symptoms or risk factors identified. Assessment: 09:28 Reassessment: Patient appears in no apparent distress at this time. Patient and/or db family updated on plan of care and expected duration. Pain level reassessed. difficulty standing and moving. Unable to move right arm. General: Appears in no apparent distress. uncomfortable, Behavior is calm, cooperative. Pain: Complains of pain in back of neck. Neuro: Level of Consciousness is awake, alert, obeys commands, Oriented to person, place, time, situation. 12:01 Reassessment: Patient appears in no apparent distress at this time. Patient and/or db family updated on plan of care and expected duration. Pain level reassessed. Patient is alert, oriented x 3, equal unlabored respirations, skin warm/dry/pink. patient attempted to use urinal with assistance from family and missed. Patient cleaned and sheets changed. 14:03 Reassessment: patient in MRI. db 14:57 Reassessment: patient returned to room from MRI. db 16:30 Reassessment: Patient appears in no apparent distress at this time. Patient and/or db family updated on plan of care and expected duration. Pain level reassessed. Patient is alert, oriented x 3, equal unlabored respirations, skin warm/dry/pink. patient able to get in wheelchair with minimal assistance. 17:00 Reassessment: Patient appears in no apparent distress at this time. Patient and/or db family updated on plan of care and expected duration. Pain level reassessed. Patient is alert, oriented x 3, equal unlabored respirations, skin warm/dry/pink. 18:28 Reassessment: Patient appears in no apparent distress at this time. Patient and/or db family updated on plan of care and expected duration. Pain level reassessed. Patient is alert, oriented x 3, equal unlabored respirations, skin warm/dry/pink. patient slid down to the floor. No injuries. lowered down by friend in room because she was unable to hold patient. Patient assisted back into bed by 2 nurses. Asked patient to call nursing staff for help. 18:36 Reassessment: Report given to CINDY Gutiérrez at receiving [facility] facility. db 19:07 Reassessment: EMS here for pateint. db Vital Signs: 09:13 BP 103 / 66; Pulse 69; Resp 16; Temp 98.1; Pulse Ox 97% on R/A; Weight 68.04 kg; Height iw 5 ft. 8 in. ; Pain 10/10; 11:45 BP 112 / 73; Pulse 64; Resp 16; Pulse Ox 96% on R/A; db 12:37 BP 123 / 78; Pulse 71; Resp 18; Pulse Ox 96% on R/A; db 13:30 BP 144 / 79; Pulse 62; Resp 18; Pulse Ox 96% on R/A; db 16:00 BP 136 / 76; Pulse 65; Resp 18; Pulse Ox 96% on R/A; db 18:30 BP 128 / 77; Pulse 65; Resp 16; Pulse Ox 96% ; db 09:13 Body Mass Index 22.81 (68.04 kg, 172.72 cm) iw 09:13 Pain Scale: Adult iw ED Course: 08:29 Patient arrived in ED. am2 08:30 Arie Willis MD is Attending Physician. rn 08:48 Triage completed. iw 08:48 Arm band placed on. iw 09:11 Katherin Ruiz, RN is Primary Nurse. db 09:20 Inserted saline lock: 20 gauge in right antecubital area, using aseptic technique. db Blood collected. 11:45 Patient has correct armband on for positive identification. Placed in gown. Bed in low db position. Call light in reach. Side rails up X2. Pulse ox on. NIBP on. Warm blanket given. Linen changed. 14:08 MRI - Brain Wo Cont In Process Unspecified. EDMS 14:50 C Spine Wo Cont In Process Unspecified. EDMS 16:38 CALLED [facility] FOR PT TRANSFER SPOKE WITH TIFFANIE. kj1 17:44 DR TO FOR CONSULT. kj1 18:29 Patient transferred, IV remains in place. db 18:29 No provider procedures requiring assistance completed. db Administered Medications: 09:28 Drug: morphine IVP or IV 4 mg Route: IVP; Infused Over: 4 mins; Site: right antecubital;db 18:12 Follow up: Response: No adverse reaction db 09:28 Drug: Ondansetron IVP 4 mg Route: IVP; Site: right antecubital; db 18:12 Follow up: Response: No adverse reaction db 18:12 Drug: Decadron - Dexamethasone IVP 10 mg Route: IVP; Site: right antecubital; db 19:05 Follow up: Response: No adverse reaction db 18:12 Drug: Nicotine Transdermal Patch 14 mg/24 hr 1 patches Route: Transdermal; Site: db affected area; 19:06 Follow up: Response: No adverse reaction db Medication: 19:09 VIS not applicable for this client. db Outcome: 16:09 ER care complete, transfer ordered by . rn 19:07 Transferred by ground EMS to [facility]. db 19:07 Condition: stable 19:07 Instructed on the need for transfer. 19:10 Patient left the ED. db Signatures: Dispatcher [employer] Lucy Rider RN Arie Cain MD MD rn Moreno, Amanda amSweetie Ibrahim kj1 Katherin Ruiz RN RN db Corrections: (The following items were deleted from the chart) 08:48 08:42 Chief complaint: iw iw 09:15 08:42 Chief complaint: Patient states: needs an MRI , was seen here this weekend Chief iw complaint: Patient states: needs an MRI , was seen here this weekend iw
--- NOTE | 2022-11-13 16:09 | EDPHYS ---
Physician Documentation [facility] Name: Rd Rodriguez Age: 61 yrs Sex: Male : 1960 Arrival Date: 11/13/2022 Time: 08:26 Bed 16 Private MD: ED Physician Arie Willis HPI: 11/13 09:09 This 61 yrs old Male presents to ER via Wheelchair with complaints of Neck Pain, >24Hrs rn Old. 09:09 This 61 yrs old Male presents to ER via Wheelchair with complaints of neck pain, rn weakness. 09:09 The patient or guardian complains of pain, that is acute. The symptoms are located rn diffusely. Onset: The symptoms/episode began/occurred 2 week(s) ago. Associated signs and symptoms: Pertinent positives: numbness, Paresthesias weakness, Pertinent negatives: fever, bladder incontinence, bowel incontinence. The pain does not radiate. Modifying factors: The symptoms are alleviated by nothing. the symptoms are aggravated by nothing. Severity of symptoms: At their worst the symptoms were moderate, in the emergency department the symptoms are unchanged. The patient has been recently seen at the [facility] Emergency Department. Pt seen a couple of days ago, for same problem, did not want to be transferred at that time, returns for increased pain and weakness of right side of body. Reports left arm and leg also weak and numb but not as bad as right side. No trauma. . Historical: - Allergies: 08:48 No Known Allergies; iw - PMHx: 08:48 Hypertension; iw - PSHx: 08:48 Appendectomy; iw - Immunization history:: Adult Immunizations unknown. - Family history:: not pertinent. - Social history:: Smoking status: Patient reports the use of cigarette tobacco products, smokes one pack cigarettes per day. - Hospitalizations: : No recent hospitalization is reported. ROS: 09:09 Constitutional: Negative for fever, chills, and weight loss, Neck: Negative for injury, rn and swelling Cardiovascular: Negative for chest pain, palpitations, and edema, Respiratory: Negative for shortness of breath, cough, wheezing, and pleuritic chest pain, Abdomen/GI: Negative for abdominal pain, nausea, vomiting, diarrhea, and constipation, Back: + neck and back pain MS/Extremity: Negative for injury and deformity, Skin: Negative for injury, rash, and discoloration, Neuro: + weakness and numbness to arms and legs Exam: 09:09 Constitutional: This is a well developed, well nourished patient who is awake, alert rn Head/Face: Normocephalic, atraumatic. Neck: No focal neck tenderness, no swelling Cardiovascular: Regular rate and rhythm. No pulse deficits. Respiratory: No increased work of breathing, no retractions or nasal flaring. Abdomen/GI: Soft, non-tender Skin: Warm, dry MS/ Extremity: Pulses equal, no cyanosis. Neuro: Awake and alert, GCS 15, oriented to person, place, time, and situation. Cranial nerves II-XII grossly intact. Decreased sensation RUE/RLE/LLE, motor strength 3/5 RUE/RLE, 4/5 LLE, 4+/5 LUE. Normal gait. Vital Signs: 09:13 BP 103 / 66; Pulse 69; Resp 16; Temp 98.1; Pulse Ox 97% on R/A; Weight 68.04 kg; Height iw 5 ft. 8 in. ; Pain 10/10; 11:45 BP 112 / 73; Pulse 64; Resp 16; Pulse Ox 96% on R/A; db 12:37 BP 123 / 78; Pulse 71; Resp 18; Pulse Ox 96% on R/A; db 13:30 BP 144 / 79; Pulse 62; Resp 18; Pulse Ox 96% on R/A; db 16:00 BP 136 / 76; Pulse 65; Resp 18; Pulse Ox 96% on R/A; db 18:30 BP 128 / 77; Pulse 65; Resp 16; Pulse Ox 96% ; db 09:13 Body Mass Index 22.81 (68.04 kg, 172.72 cm) iw 09:13 Pain Scale: Adult iw MDM: 08:30 Patient medically screened. rn 16:05 Differential diagnosis: Cervical Discogenic Pain Cervical Facet Syndrome Cervical rn Raiculopathy cervical strain, Epidural Abcess Spinal Cord Compression Spondylosis subluxation, CVA. Data reviewed: vital signs, nurses notes, lab test result(s), radiologic studies, MRI, and as a result, I will admit patient. Consideration of Admission/Observation Patient was admitted/placed on observation. Escalation of care including admission/observation considered. Counseling: I had a detailed discussion with the patient and/or guardian regarding: the historical points, exam findings, and any diagnostic results supporting the discharge/admit diagnosis, lab results, radiology results, the need to transfer to another facility, for higher level of care, [facility] does not immediately have the required specialist. 11/13 08:52 Order name: CBC with Diff; Complete Time: 13:07 rn 11/13 08:52 Order name: Basic Metabolic Panel; Complete Time: 13:07 rn 11/13 08:52 Order name: MRI - Brain Wo Cont; Complete Time: 15:46 rn 11/13 13:53 Order name: C Spine Wo Cont; Complete Time: 16:17 EDMS 11/13 08:52 Order name: IV Start; Complete Time: 09:28 rn Administered Medications: 09:28 Drug: morphine IVP or IV 4 mg Route: IVP; Infused Over: 4 mins; Site: right antecubital;db 18:12 Follow up: Response: No adverse reaction db 09:28 Drug: Ondansetron IVP 4 mg Route: IVP; Site: right antecubital; db 18:12 Follow up: Response: No adverse reaction db 18:12 Drug: Decadron - Dexamethasone IVP 10 mg Route: IVP; Site: right antecubital; db 19:05 Follow up: Response: No adverse reaction db 18:12 Drug: Nicotine Transdermal Patch 14 mg/24 hr 1 patches Route: Transdermal; Site: db affected area; 19:06 Follow up: Response: No adverse reaction db Disposition Summary: 11/13/22 16:09 Transfer Ordered Transfer Location: [facility] rn Reason: Higher level of care rn Condition: Stable rn Problem: an ongoing problem rn Symptoms: have worsened rn Accepting Physician: (11/13/22 19:10) db Diagnosis - Weakness rn - Spinal cord compression rn - Paresthesia of skin rn Forms: - Medication Reconciliation Form rn - SBAR form rn Signatures: Dispatcher [employer] EDLucy Payton RN RN iw Nieto, Roman, MD MD rn Benton, Danielle, RN RN db Corrections: (The following items were deleted from the chart) 13:52 09:05 C Spine W Cont ordered. EDMS EDMS 13:53 09:07 Thoracic Spine W/Con ordered. EDMS EDMS 18:39 08:52 Lumbar Spine Wo Con+MRI.RAD.BRZ ordered. EDMS EDMS 18:39 13:53 Thoracic Spine Wo Contr ordered. EDMS EDMS 19:10 16:09 Dr. sotelo db
--- NOTE | 2022-11-13 16:10 | RAD REPORT ---
EXAM DESCRIPTION: MRI - C Spine Wo Cont - 11/13/2022 2:49 pm CLINICAL HISTORY: Weakness, numbness, bilateral COMPARISON: CT head and cervical spine 11/10/2022. TECHNIQUE: Multiplanar multisequence MRI of the cervical spine, obtained without IV contrast. FINDINGS: Cervical vertebral bodies are normal in height. Straightening of normal cervical lordosis. Mild anterolisthesis of C2 over C3 and retrolisthesis of C3 over C4, both measuring approximately 3 millimeter. No suspicious marrow edema or marrow replacing process. Cerebellar tonsils and mid-line skull base show no suspicious finding. No significant finding at the C1 and C2 levels. C2-3 level: Small central disc protrusion. Bilateral facet and uncovertebral joint arthropathy with b ilateral facet effusions. A bilobed intrinsic 1.2 x 0.4 centimeter synovial cyst extends underneath t he ligament, and contributing to asymmetric canal stenosis, overall severe in degree. Pronounced flat tening of the right dorsal aspect of the cord. Bilateral mild neural foraminal narrowing. C3-4 level: Small central disc extrusion. Bilateral facet and uncovertebral joint arthropathy. Mild c entral canal stenosis with flattening of the ventral aspect of the cord. Bilateral moderate to severe neural foraminal narrowing. C4-5 level: Broad-based posterior disc bulge. Bilateral facet and uncovertebral joint arthropathy mor e pronounced on the right. No significant central canal stenosis. Right severe and left moderate neur al foraminal narrowing. C5-6 level: Broad-based posterior disc bulge. Bilateral facet and uncovertebral joint arthropathy. Mi ld central canal stenosis with flattening of the ventral and dorsal aspects of the cord. Bilateral se [place] neural foraminal narrowing. C6-7 level: Broad-based posterior disc bulge with additional superimposed central disc protrusion. Le ft more than right uncovertebral joint arthropathy and facet spurring. Overall moderate central canal stenosis with flattening of the ventral more than dorsal aspects of the cord. Additional left latera l recess narrowing. Bilateral severe neural foraminal narrowing worse on the left. C7-T1 level: Small central disc bulge. Bilateral facet arthropathy and right uncovertebral joint spur ring. No significant canal stenosis. Right mild to moderate neural foraminal narrowing. Cervical cord shows no and no discrete signal abnormality apart from questionable dorsal cord signal abnormality at C5-6 level, which may relate to technical factors. IMPRESSION: Advanced cervical spine spondylitic changes. Findings include severe central canal stenosis at C2-3 level, in part due to intrinsic 1.2 centimeter synovial cyst elevating the right aspect of the ligamentum flavum. Moderate central canal stenosis i s also noted at C6-7 level. Variable degrees of neural foraminal narrowing, up to severe bilaterally at C5-6 and C6-7, and severe on the right at C4-5. Questionable dorsal cord signal abnormality opposite C5-6, which may be artifactual, seen on the sagi ttal T2 images only. The findings were communicated to Arie Willis on 11/13/2022 at 15:47 hours.
[2022-11-13] MEDS ORDERED: NICOTINE 21 MG/PAT TD ONE (18:03)
[2022-11-13] MEDS ORDERED: dexAMETHasone 10 MG/ML VIAL ONE (18:03)
[2022-11-13 19:35] VITALS: TEMP 98.1
[2022-11-13 19:36] VITALS: O2SAT 96
[2022-11-13 19:41] VITALS: BP 128/77
== END 2022-11-13 19:10 | disposition short-term general hospital (02) ==
LOC: ER 08:26
DX: G95.20 Unspecified cord compression (principal); R20.2 Paresthesia of skin; I10 Essential (primary) hypertension; F17.210 Nicotine dependence, cigarettes, uncomplicated
CPT/HCPCS: 85025; 80048; 36415; 70551; 72141; 96375; 96374; 99285; J1100; J2405